=== PATIENT | female | born 1960 | race Caucasian/White ===

== ENCOUNTER 2016-05-13 14:36 | Inpatient (IN) | payer MEDICAID ==
[~2016-05-13] VITALS: Ht 160 cm; Wt 41.3 kg
[~2016-05-13 14:36] MED LIST: AMBI10TA PO; DEXA4TAB PO; FENT25DI T-DERMAL; LEVE500 PO; LOMO PO; LOPE2 PO; OXYC1SOL5 PO; PROM25TA5 PO; VENTAER INH; XANA0.5T PO
[2016-05-13] MEDS ORDERED: fentaNYL 25 MCG/HR PATCH TD SCH (22:00)
[2016-05-13] MEDS ORDERED: ONDANSETRON HCL 4 MG/2 ML VIAL IV PUSH PRN (22:15)
[2016-05-13] MEDS: SODIUM CHLOR 0.9% 1000 ML INJ 1,000 ML IV SCH (22:15)
[2016-05-13 22:26] VITALS: BP 112/71; PULSE 74; RESP 16; TEMP 97.3; O2SAT 100
[2016-05-13] MEDS ORDERED: DIATRIZOATE MEGLUM/DIATRIZOATE SOD 9 ML CUP PO ONE (22:53)
[2016-05-13 23:59] LABS: ALKALINE PHOSPHATASE 115 U/L (45-117); ALT (GPT) 20 U/L (10-53); ANION GAP 7 MEQ/L (5-15); AST (GOT) 21 U/L (15-37); BICARBONATE 30.5 MEQ/L (21.0-32.0); BLOOD UREA NITROGEN 11 MG/DL (7-18); CHLORIDE 99 MEQ/L (98-107); GLOMERULAR FILTRATION RATE 65 ML/MIN (>89); MAGNESIUM 1.7 MG/DL (1.5-2.5); POTASSIUM 3.6 MEQ/L (3.5-5.1); SODIUM (NA) 136 MEQ/L (136-145); TOTAL BILIRUBIN ADULT 0.4 MG/DL (0.2-1.0)
[2016-05-14 00:03] VITALS: BP 124/62; PULSE 60; RESP 16; TEMP 98.7; O2SAT 99
[2016-05-14] MEDS ORDERED: IOHEXOL 350 MG/ML 10 ML VIAL (for RAD DIAG) IV ONE (02:22)
--- NOTE | 2016-05-14 02:58 | RADRPT ---
EXAM DATE/TIME: 05/14/2016 01:59 [facility] COMPARISON: CT ABDOMEN & PELVIS W CONTRAST, November 14, 2014, 16:30. CT ABDOMEN & PELVIS W CONTRAST, May 14 17, 1:59. CT PULMONARY ANGIOGRAM, April 25, 2015, 15:36. CT THORAX W CONTRAST, November 14, 2014, 16 :30. INDICATIONS : Weight loss and failure to thrive. IV CONTRAST: 70 cc Omnipaque 350 (iohexol) IV ; Cumulative dose for multiple exams. RADIATION DOSE: 5.2 CTDIvol (mGy) ; Combined studies - Thorax/Abdomen/Pelvis MEDICAL HISTORY : Carcinoma, lung. Gastroesophageal reflux disease. SURGICAL HISTORY : Hysterectomy. Appendectomy. ENCOUNTER: Initial ACUITY: 1 day PAIN SCALE: Non-responsive LOCATION: Bilateral chest TECHNIQUE: Volumetric scanning of the chest was performed. Using automated exposure control and adjustment of t he mA and/or kV according to patient size, radiation dose was kept as low as reasonably achievable to obtain optimal diagnostic quality images. FINDINGS: LUNGS: Right apical lung mass is grossly unchanged. There are multiple left lung nodules, some of which are smaller than previous, however a posterior left infrahilar mass has increased in size, previously les s than 2 cm and now about 3 cm in diameter.. PLEURA: There is no pleural thickening or pleural effusion. MEDIASTINUM: The heart and great vessels demonstrate no acute abnormality. There is no mediastinal or hilar lymph adenopathy. AXILLAE: Within normal limits. No lymphadenopathy. SKELETAL: Within normal limits for patient age. CONCLUSION: Increased size of largest of multiple left lung nodules.. Stable large right apical lung mass. Alexis Noel MD on May 14, 2016 at 2:48 Board Certified Radiologist. This report was verified electronically.
--- NOTE | 2016-05-14 03:02 | RADRPT ---
EXAM DATE/TIME: 05/14/2016 01:59 [facility] COMPARISON: CT ABDOMEN & PELVIS W CONTRAST, November 14, 2014, 16:30. INDICATIONS : Weight loss and failure to thrive. IV CONTRAST: 70 cc Omnipaque 350 (iohexol) IV ; Cumulative dose for multiple exams. ORAL CONTRAST: Partial prescribed oral contrast ingested. RADIATION DOSE: 5.2 CTDIvol (mGy) ; Combined studies - Thorax/Abdomen/Pelvis MEDICAL HISTORY : Carcinoma, lung. Gastroesophageal reflux disease. SURGICAL HISTORY : Hysterectomy. Appendectomy. ENCOUNTER: Initial ACUITY: 1 day PAIN SCALE: Non-responsive LOCATION: Bilateral abdomen TECHNIQUE: Volumetric scanning of the abdomen and pelvis was performed. Using automated exposure control and ad justment of the mA and/or kV according to patient size, radiation dose was kept as low as reasonably achievable to obtain optimal diagnostic quality images. FINDINGS: LIVER: Homogeneous density without lesion. There is no dilation of the biliary tree. No calcified gallston es. SPLEEN: Normal size without lesion. PANCREAS: Within normal limits. KIDNEYS: Normal in size and shape. There is no mass, stone or hydronephrosis. ADRENAL GLANDS: Within normal limits. VASCULAR: There is no aortic aneurysm. BOWEL/MESENTERY: D. duodenum and proximal jejunal bowel loops are notable for dilatation and moderate concentric wall thickening. The remainder of the bowel is notable for mild fluid and gaseous distention throughout. ABDOMINAL WALL: Within normal limits. RETROPERITONEUM: There is no lymphadenopathy. BLADDER: No wall thickening or mass. REPRODUCTIVE: Uterus surgically absent. INGUINAL: There is no lymphadenopathy or hernia. MUSCULOSKELETAL: Within normal limits for patient age. CONCLUSION: Dilatation or wall thickening involving the duodenum and proximal small bowel. Mild fluid and gaseous distention of the remaining bowel. Alexis Noel MD on May 14, 2016 at 2:57 Board Certified Radiologist. This report was verified electronically.
[2016-05-14 04:04] VITALS: BP 125/75; PULSE 61; RESP 16; TEMP 96.8; O2SAT 99
[2016-05-14 05:54] LABS: AUTOMATED NEUTROPHIL # 4.2 TH/MM3 (1.8-7.7); BASOPHIL # 0.1 TH/MM3 (0-0.2); BASOPHIL % 1.6 % (0.0-2.0); EOSINOPHIL # 0.1 TH/MM3 (0-0.4); EOSINOPHIL % 1.2 % (0.0-4.0); HEMO FLAGS DIFF FINAL; LYMPH % 14.7 % (9.0-44.0); LYMPHOCYTE # 0.8 TH/MM3 (1.0-4.8); MEAN CELL VOLUME 80.7 FL (80.0-100.0); MEAN CORPUSCULAR HEMOGLOBIN 26.6 PG (27.0-34.0); MEAN CORPUSCULAR HGB CONC 32.9 % (32.0-36.0); MONO % 8.7 % (0.0-8.0); NEUT % 73.8 % (16.0-70.0); PLATELET COUNT 277 TH/MM3 (150-450); RED BLOOD COUNT 3.97 MIL/MM3 (4.00-5.30); RED CELL DISTRIBUTION WIDTH 16.6 % (11.6-17.2); WHITE BLOOD COUNT 5.7 TH/MM3 (4.0-11.0)
[2016-05-14 06:22] LABS: MAGNESIUM 1.8 MG/DL (1.5-2.5)
[2016-05-14 08:00] VITALS: BP 112/71; PULSE 55; RESP 20; TEMP 97.9; O2SAT 100
[2016-05-14] MEDS ORDERED: ENOXAPARIN SODIUM 40 MG/0.4 ML SYRINGE SQ SCH (09:00)
[2016-05-14] MEDS: PANTOPRAZOLE SOD 20 MG DELAYED RELEASE TAB PO SCH (09:00)
[2016-05-14] MEDS ORDERED: GADODIAMIDE PF 287 MG/ML 10 ML VIAL (for RAD MRI) IV ONE (10:24)
--- NOTE | 2016-05-14 11:05 | RADRPT ---
EXAM DATE/TIME: 05/14/2016 10:06 [facility] COMPARISON: MRI BRAIN W & W/O CONTRAST, November 24, 2014, 17:01. INDICATIONS : Brain and lung cancer. CONTRAST: 18 cc Omniscan (gadodiamide) IV MEDICAL HISTORY : Carcinoma, lung. Carcinoma, brain SURGICAL HISTORY : Hysterectomy. Bowel resection, brain mass resection ENCOUNTER: Subsequent ACUITY: > 1 year PAIN SCORE: 0/10 LOCATION: cranial TECHNIQUE: Multiplanar, multisequence MRI of the brain was performed both prior to and following the administration of paramagnetic contrast. FINDINGS: This is an abnormal exam. There is a peripheral enhancing heterogeneous mass centered within the left temporal lobe which appears to have increased in size now measuring 2.8 x 3.0 x 2.5 cm. There is significant adjacent per itumoral edema seen throughout the left temporal lobe and extending into the left parietal lobe and o ccipital lobe. There is now 1.2 cm of midline shift to the right with effacement of the left lateral ventricle, suprasellar cistern interpeduncular cistern. There is a new smaller area of enhancement wi th adjacent peritumoral edema measuring 8 mm seen within the right superior parietal lobe on series 1 3 image 150 and coronal series 15 image 128. The remainder of the pepe-white matter is preserved. The orbits and sinuses are unremarkable. CONCLUSION: Significantly abnormal exam with both enlargement of the mass seen within the left te mporal lobe with worsening peritumoral edema and new midline shift to the right measuring 1.2 cm with effacement of the adjacent lateral ventricles, suprasellar cistern and interpedicular cistern. New s mall area of abnormal enhancement and peritumoral edema identified within the superior right parietal lobe. Leesa Palma MD on May 14, 2016 at 10:42 Board Certified Radiologist. This report was verified electronically.
[2016-05-14 11:27] VITALS: BP 116/72; PULSE 54; RESP 20; TEMP 97.4; O2SAT 99
[2016-05-14] MEDS: SODIUM CHLOR 0.9% 1000 ML INJ 1,000 ML IV SCH (12:39)
[2016-05-14] MEDS: DEXAMETHASONE SOD PHOS 4 MG/ML VIAL IV SCH ×2 (12:39→21:52)
--- NOTE | 2016-05-14 13:37 | MH ---
cc: JERRI FULLER DATE OF ADMISSION: 05/13/2016 DATE OF : 1960 REASON FOR ADMISSION Patient with a history of stage IV lung cancer with metastasis to the brain, who presents with lethargy, confusion, overall declining performance status, and failure to thrive. CHIEF COMPLAINT Confusion. HISTORY OF PRESENT ILLNESS Ms. 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 The patient was previously seen by Dr. Lopez who recently retired and her care was transferred to [place]. She had presented to our clinic yesterday with complaints of confusion and lethargy. Her daughter was present during the clinic visit. She stated that the patient has been in overall decline over the last month. She does not verbalize much. She is sleeping a lot. The patient was diagnosed with lung cancer in 2013. She presented with brain lesions. She received stereotactic radiation to the brain. Subsequently she was treated with cisplatin chemotherapy. Then she had disease progression and has been treated with immunotherapy with IV nivolumab. During my conversation with the patient she was not able to answer questions. She was easily distractible and could not focus. When she was asked a question she would stare without giving an answer. The daughter states that she has not had any fevers or chills or nausea or vomiting. She does not have any pain. She appears comfortable. The patient is now being admitted for lethargy, confusion, failure to thrive, weight loss, and overall decline in her performance status. REVIEW OF SYSTEMS The review of systems was completed with the assistance of the daughter and are documented in the HPI. The patient was encephalopathic and confused. PAST MEDICAL HISTORY 1. Stage IV adenocarcinoma of the lung with brain mets. 2. Status post chemotherapy and radiation, and also currently getting treatment with immunotherapy. 3. History of anemia. 4. COPD. 5. Degenerative arthritis. PAST SURGICAL HISTORY 1. Appendectomy. 2. Hysterectomy. 3. Lung cancer biopsy. 4. Multiple bowel surgeries after a ruptured appendix with abscess. 5. Left occipital temporal craniotomy in 2014. 6. Colonoscopy in 1999. ALLERGIES No known drug allergies. MEDICATIONS 1. Ambien, one tablet p.o. daily p.r.n. 2. Duragesic 25 mcg patch transdermal q.3h. 3. Duricef 75 mcg p.o. 4. Folic acid 1 mg, one tablet p.o. daily. 5. Hydrocodone 10 mg, one tablet p.o. q.4h. 6. Ibuprofen as needed. 7. Imodium as needed. 8. Pantoprazole 40 mg, one tablet p.o. daily. 9. Phenergan 25 mg, one tablet p.o. q.6h. p.r.n. FAMILY HISTORY Family history was reviewed and it is noncontributory to this admission. SOCIAL HISTORY She lives with her family. She does not smoke cigarettes. She has a previous history of extensive tobacco abuse but quit 3-4 years ago. She does not drink alcohol. No illicit drug use. PHYSICAL EXAMINATION VITAL SIGNS: Blood pressure is 112/71, pulse is in the 70s, temperature is 97.3. Pulse ox shows O2 sats of 100%. GENERAL: An elderly female, chronically ill, appears confused, does not respond to questions completely. She is alert. The patient is cachectic on exam. HEENT: Pupils are equal, round and reactive to light. Extraocular movements intact. No oral thrush. No oral lesion. NECK: Supple. No JVD. No bruits. No lymphadenopathy. CHEST: Clear to auscultation bilaterally. CARDIAC: S1, S2, regular rate and rhythm. ABDOMEN: Soft, nontender, nondistended. EXTREMITIES: Without any edema, erythema or cyanosis. SKIN: Without any petechiae or lesions. NEUROLOGIC: Confused. Minimal verbal responses. Grossly cranial nerves are intact. PSYCHIATRIC: Flat affect. Does not answer questions. LABORATORY DATA WBC 6.5, hemoglobin 11.5, platelet count 312. Serum chemistries show sodium 136, potassium 3.8, CO2 27.5, creatinine 0.89, calcium 9.2, total bilirubin 0.4, AST 13, ALT 16, alk phos 121, total protein 7.5, albumin 3.7. ASSESSMENT AND PLAN This is a 55-year-old female with stage IV lung adenocarcinoma with mets to the brain, who is now being admitted with lethargy, confusion, failure to thrive, overall decline in performance status. 1. Lethargy and confusion. The differential here includes progressive disease versus metabolic or infectious etiology. She has been on during Duragesic and has been taking Lortab. There is a possibility of drug overdose. I am very concerned about the current disease. We will obtain an MRI of the brain to rule out any progression of her intracranial disease. I will also obtain CT of the chest, abdomen and pelvis to re-stage her disease. We will decrease the fentanyl patch to 25 mcg daily. Her lab work-up did not show any apparent metabolic encephalopathy. Will check ammonia level. Will check her electrolytes. Will obtain a UA and urine culture. 2. Pain control. Pain medications are adjusted as stated above. 3. Nausea prevention. I will start her on p.r.n. Zofran. 4. DVT prophylaxis. Will start her on enoxaparin 40 mg subcu daily. 5. Fluids, electrolytes and nutrition. She is quite cachectic and malnourished. Will obtain a nutrition consult. We will start her on Ensure Plus t.i.d. with meals. I will start her on IV fluids at 75 cc an hour. Further recommendations will be made based on the imaging results and the patient's clinical status. MD EDDIE De León/DUSTY /12:54 PM /1:09 PM
--- NOTE | 2016-05-14 14:30 | PD.ONC.PN ---
Subjective Subjective Remarks Afebrile overnight. Patient having trouble speaking, but per daughter understands everything said. Daughter at bedside states the patietn is significantly more alert and aware today, than she was yesterday. Still has pain in head and chest. d/w RN Objective Data Date Time Temp Pulse Resp B/P Pulse Ox O2 Delivery O2 Flow Rate FiO2 05/14/16 11:27 97.4 54 20 116/72 99 05/14/16 08:00 97.9 55 20 112/71 100 05/14/16 04:04 96.8 61 16 125/75 99 05/14/16 00:03 98.7 60 16 124/62 99 05/13/16 22:26 97.3 74 16 112/71 100 Result Diagram: 05/14/16 0440 05/13/16 2300 Laboratory Results Laboratory Tests Test 05/13/16 05/14/16 23:00 04:40 Sodium Level 136 MEQ/L Potassium Level 3.6 MEQ/L Chloride Level 99 MEQ/L Carbon Dioxide Level 30.5 MEQ/L Anion Gap 7 MEQ/L Blood Urea Nitrogen 11 MG/DL Creatinine 0.89 MG/DL Estimat Glomerular Filtration 65 ML/MIN Rate Random Glucose 92 MG/DL Calcium Level 8.8 MG/DL Phosphorus Level 2.8 MG/DL 3.0 MG/DL Magnesium Level 1.7 MG/DL 1.8 MG/DL Total Bilirubin 0.4 MG/DL Aspartate Amino Transf 21 U/L (AST/SGOT) Alanine Aminotransferase 20 U/L (ALT/SGPT) Alkaline Phosphatase 115 U/L Ammonia 15 MCMOL/L Total Protein 7.3 GM/DL Albumin 3.6 GM/DL Thyroid Stimulating Hormone 0.824 uIU/ML 3rd Gen Random Cortisol 18.9 MCG/DL White Blood Count 5.7 TH/MM3 Red Blood Count 3.97 MIL/MM3 Hemoglobin 10.5 GM/DL Hematocrit 32.0 % Mean Corpuscular Volume 80.7 FL Mean Corpuscular Hemoglobin 26.6 PG Mean Corpuscular Hemoglobin 32.9 % Concent Red Cell Distribution Width 16.6 % Platelet Count 277 TH/MM3 Mean Platelet Volume 7.2 FL Neutrophils (%) (Auto) 73.8 % Lymphocytes (%) (Auto) 14.7 % Monocytes (%) (Auto) 8.7 % Eosinophils (%) (Auto) 1.2 % Basophils (%) (Auto) 1.6 % Neutrophils # (Auto) 4.2 TH/MM3 Lymphocytes # (Auto) 0.8 TH/MM3 Monocytes # (Auto) 0.5 TH/MM3 Eosinophils # (Auto) 0.1 TH/MM3 Basophils # (Auto) 0.1 TH/MM3 CBC Comment DIFF FINAL Differential Comment Imaging Studies Last 24 hours Impressions Brain MRI 05/14/16 0000 Signed Impressions: Service Date/Time: Saturday, May 14, 2016 10:06 - CONCLUSION: Significantly abnormal exam with both enlargement of the mass seen within the left temporal lobe with worsening peritumoral edema and new midline shift to the right measuring 1.2 cm with effacement of the adjacent lateral ventricles, suprasellar cistern and interpedicular cistern. New small area of abnormal enhancement and peritumoral edema identified within the superior right parietal lobe. Leesa Palma MD Abdomen/Pelvis CT 05/13/162222 Signed Impressions: Service Date/Time: Saturday, May 14, 2016 01:59 - CONCLUSION: Dilatation or wall thickening involving the duodenum and proximal small bowel. Mild fluid and gaseous distention of the remaining bowel. Alexis Noel MD Chest CT 05/13/162221 Signed Impressions: Service Date/Time: Saturday, May 14, 2016 01:59 - CONCLUSION: Increased size of largest of multiple left lung nodules.. Stable large right apical lung mass. Alexis Noel MD Administered Medications Medications (Trade) Dose Ordered Sig/Quentin Route PRN Reason Start Time Stop Time Status Last Admin Dose Admin Sodium Chloride (NS 1000 ml Inj) 1,000 ml @ 75 mls/hr [id number] IV 05/13/16 22:15 05/14/16 12:39 Enoxaparin Sodium (Lovenox Inj) 40 mg DAILY SQ 05/14/16 09:00 05/14/16 09:00 Oxycodone HCl (Roxicodone) 5 mg Q6H PRN PO PAIN 05/13/16 22:15 05/14/16 09:00 Pantoprazole Sodium (Protonix) 20 mg DAILY PO 05/14/16 09:00 05/14/16 09:00 Dexamethasone Sodium Phosphate (Decadron Inj) 6 mg Q8H IV 05/14/16 12:00 05/14/16 12:39 Objective Remarks GENERAL: Middle aged female, sitting up in bed. She appears anxious, but otherwise comfortable. SKIN: Warm and dry. HEAD: Normocephalic. EYES: No scleral icterus. No injection or drainage. NECK: Supple, trachea midline. CARDIOVASCULAR: Regular rate and rhythm RESPIRATORY: Breath sounds equal bilaterally. No accessory muscle use. GASTROINTESTINAL: Abdomen soft, non-tender, nondistended. EXTREMITIES: No cyanosis NEUROLOGICAL: awake and alert. expressive aphasia. able to shrug shoulders. unable to lift eyebrows. unable to smile. when I ask her to stick out her tongue she says, "I don't remember how." Assessment/Plan Problem List: (1) Nausea & vomiting Status: Acute Plan: --on anti-emetics (2) Metastatic lung cancer (metastasis from lung to other site) Status: Acute Plan: --originally diagnosed in 2013 --received Cisplatin as well as Nivolumab after progression --has had stereotactic brain irradiation --s/p removal of brain mass in 2015. -- Lethargy and confusion for the past 2-3 weeks --MRI brain showed enlargement of the mass seen within the left temporal lobe with worsening peritumoral edema and new midline shift to the right measuring 1.2 cm --CT C/A/P showed Dilatation or wall thickening involving the duodenum and proximal small bowel. Mild fluid and gaseous distention of the remaining bowel. Increased size of largest of multiple left lung nodules (3) DVT prophylaxis Status: Acute Plan: --on Lovenox (4) Lethargy Status: Acute Assessment 55y/o female with history of stage IV lung cancer with metastasis to the brain admitted with lethargy, confusion, overall declining performance status, and failure to thrive. 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 status post chemotherapy and radiation, and also currently getting treatment with immunotherapy. History of anemia. COPD. Degenerative arthritis. Plan 1. continue IV Decadron 2. discussed MRI brain and CT C/A/P results with patient and daughters at bedside. Discussed plan to continue IV steroids. discussed consulting neurosurgery. opportunity to ask questions provided. multiple questions answered. MRI films reviewed with patient's daughters. emotional support provided. 3. consult neurosurgery Attending Statement The exam, history, and the medical decision-making described in the above note were completed with the assistance of the mid-level provider. I reviewed and agree with the findings presented. I attest that I had a [id number] encounter with the patient on the same day, and personally performed and documented my assessment and findings in the medical record. Patient has progressive disease with a large temporal mass and midline shift. IV Decadron started. Neurosurgery consulted. Not a good candidate for surgery . Options of further chemotherapy vs radiation treatments vs palliative care discussed. will continue supportive care for now. family to have further discussions. approximately 50 minutes spent in discussion with the patient and family and coordination of care. Bernadette Shine May 14, 2016 14:30 Marty Marie MD May 14, 2016 22:21
[2016-05-14 16:13] LABS: BLOOD, URINE NEG (NEG); COMMENT (UR) CULT NOT INDICATED; CULTURE IF INDICATED CULT NOT INDICATED; GLUCOSE,URINE NEG (NEG); KETONE, URINE NEG (NEG); NITRITE,URINE NEG (NEG); PH, URINE 6.5 (5.0-8.5); RENAL EPITHELIAL CELLS <1 /hpf; SQUAMOUS EPITHELIAL CELL URINE 1 /hpf (0-5); TRANSITIONAL EPI CELLS, URINE <1 /hpf; URINE COLOR YELLOW (YELLW/STRAW)
[2016-05-14 16:44] LABS: ANION GAP 9 MEQ/L (5-15); AST (GOT) 13 U/L (15-37); BICARBONATE 26.4 MEQ/L (21.0-32.0); BLOOD UREA NITROGEN 9 MG/DL (7-18); CHLORIDE 99 MEQ/L (98-107); GLOMERULAR FILTRATION RATE 60 ML/MIN (>89); MAGNESIUM 1.6 MG/DL (1.5-2.5); POTASSIUM 3.3 MEQ/L (3.5-5.1); SODIUM (NA) 134 MEQ/L (136-145)
[2016-05-14 16:47] LABS: ALKALINE PHOSPHATASE 106 U/L (45-117); ALT (GPT) 18 U/L (10-53); TOTAL BILIRUBIN ADULT 0.3 MG/DL (0.2-1.0)
--- NOTE | 2016-05-14 18:55 | MB ---
cc: JERRI FULLER MDKAMILA DATE OF CONSULTATION 05/14/2016 REASON FOR CONSULTATION Recurrent left temporoparietal lobe mass. HISTORY OF PRESENT ILLNESS A 55-year-old female who was underwent left craniotomy for resection of an isolated brain mass in October of 2014. She was found to have a metastatic lung adenocarcinoma with lung masses also. She subsequently also underwent stereotactic radiosurgery boost to the resection bed of the brain in November of 2014 and subsequently has undergone chemotherapy. She had speech deficits which did improve, although lately her symptoms have declined with progressive worsening of her speech and expression and weakness and headaches and pressure sensation and confusion. She is undergoing chemotherapy, but apparently despite this the lung masses are enlarging and she now is found to have a recurrent left posterior temporoparietal area mass measuring about 3 cm with surrounding vasogenic edema. The patient's daughters relate that after the last radiation therapy, she had significant headaches and does not want to undergo that again. PAST MEDICAL HISTORY 1. Lung adenocarcinoma with brain metastases stage IV, 2. Status post craniotomy and stereotactic radiosurgery and 2015, 3. COPD, 4. Bowel surgeries for ruptured appendix and abscess, 5. Hysterectomy, 6. Appendectomy. MEDICATIONS 1. Albuterol inhaler. 2. Alprazolam. 3. Decadron. 4. Lomotil, 5. Fentanyl patch 6. Keppra. 7. Imodium. 8. Percocet. 9. Phenergan. 10. Ambien. ALLERGIES NO KNOWN DRUG ALLERGIES. SOCIAL HISTORY She is and her children including several daughters are here at the bedside with her. She is a former smoker. Denies alcohol use. LABORATORY FINDINGS White blood cell count 5.7, hemoglobin 10.5, platelet count 277, Sodium 134, potassium 3.3, BUN nine, creatinine 0.96, glucose 179. REVIEW OF SYSTEMS Pertinent positives mentioned in history of present illness otherwise negative. Complains of severe headache, complained of nausea. Complains of confusion, complains of difficulty with expression of her speech more so than comprehension. Complains of generalized weakness. Complains of difficulty with her walking and unsteady gait. Denies any chest pain or shortness of breath. Denies any abdominal pain. No fevers or chills. She has a poor appetite and has been losing weight. PHYSICAL EXAMINATION VITAL SIGNS: Temperature 97.4, pulse is 54, respiratory rate 20, blood pressure 116/72, oxygen saturation 99% on room air. HEAD: Normocephalic, atraumatic. NECK: Supple. CHEST: Clear bilaterally HEART: Regular rate rhythm, normal S1, S2. ABDOMEN: Soft and nontender. EXTREMITIES: No cyanosis or edema. NEUROLOGIC: She is awake, alert. She has [id number] expressive and moderate receptive aphasia, has difficulty following simple commands. Pupils equal, reactive. Extraocular muscles are intact. She has a mild right facial droop. She has a right mild hemiparesis 4/5 and negative Babinski. Appreciates light touch sensation bilaterally. IMPRESSION Recurrent left posterior temporoparietal lobe mass with worsening headaches and aphasia and weakness. She had a previous history of craniotomy for resection of this mass along with radiosurgery with recurrent mass and also enlarging lung masses despite chemotherapy. PLAN The patient is not a good candidate for any further surgical intervention for her brain mass as this will definitely lead to significant morbidity including complete aphasia and likely right-sided weakness or paralysis. We did discuss the option of further radiation treatment to the brain as well as continued chemotherapy which the patient and her daughter are debating whether to undertake this and seemed to have elected, after a lengthy discussion, to proceed with comfort measures and hospice. They will also discuss this with her medical oncologist. MD NEELIMA Solomon/ /6:19 PM /6:37 PM
[2016-05-14 20:00] VITALS: BP 126/72; PULSE 76; RESP 16; TEMP 97.1; O2SAT 99
[2016-05-14] MEDS ORDERED: LORazepam 2 MG/ML VIAL IV STA (21:45)
[2016-05-14] MEDS: MORPHINE SULFATE 4 MG/ML INJ IV PRN (21:52)
[2016-05-14] MEDS ORDERED: REMOVE OLD DURAGESIC (FENTANYL) PATCH TD SCH (23:00)
[2016-05-14] MEDS ORDERED: fentaNYL 25 MCG/HR PATCH TD SCH ×2 (23:00→23:19)
[2016-05-14 23:59] VITALS: BP 125/58; PULSE 54; RESP 16; TEMP 97.6; O2SAT 96
[2016-05-15] MEDS: MORPHINE SULFATE 4 MG/ML INJ IV PRN ×7 (00:57→23:04)
[2016-05-15] MEDS: SODIUM CHLOR 0.9% 1000 ML INJ 1,000 ML IV SCH ×2 (00:59→14:25)
[2016-05-15 04:00] VITALS: BP 104/64; PULSE 53; RESP 16; TEMP 96.7; O2SAT 98
[2016-05-15] MEDS: DEXAMETHASONE SOD PHOS 4 MG/ML VIAL IV SCH ×3 (04:13→20:19)
[2016-05-15 06:04] LABS: AUTOMATED NEUTROPHIL # 5.8 TH/MM3 (1.8-7.7); BASOPHIL % 0.5 % (0.0-2.0); HEMATOCRIT 28.5 % (35.0-46.0); HEMO FLAGS DIFF FINAL; LYMPH % 7.1 % (9.0-44.0); LYMPHOCYTE # 0.5 TH/MM3 (1.0-4.8); MEAN CORPUSCULAR HEMOGLOBIN 26.9 PG (27.0-34.0); MEAN CORPUSCULAR HGB CONC 33.3 % (32.0-36.0); MONO % 2.7 % (0.0-8.0); NEUT % 89.7 % (16.0-70.0); PLATELET COUNT 243 TH/MM3 (150-450); RED BLOOD COUNT 3.52 MIL/MM3 (4.00-5.30); RED CELL DISTRIBUTION WIDTH 16.2 % (11.6-17.2); WHITE BLOOD COUNT 6.4 TH/MM3 (4.0-11.0)
[2016-05-15 06:21] LABS: ALKALINE PHOSPHATASE 97 U/L (45-117); ALT (GPT) 17 U/L (10-53); ANION GAP 11 MEQ/L (5-15); AST (GOT) 9 U/L (15-37); BICARBONATE 23.9 MEQ/L (21.0-32.0); BLOOD UREA NITROGEN 10 MG/DL (7-18); CHLORIDE 101 MEQ/L (98-107); GLOMERULAR FILTRATION RATE 67 ML/MIN (>89); MAGNESIUM 1.6 MG/DL (1.5-2.5); POTASSIUM 3.8 MEQ/L (3.5-5.1); SODIUM (NA) 136 MEQ/L (136-145); TOTAL BILIRUBIN ADULT 0.2 MG/DL (0.2-1.0)
[2016-05-15 08:00] VITALS: BP 117/65; PULSE 50; RESP 18; TEMP 96.9; O2SAT 100
[2016-05-15] MEDS: PANTOPRAZOLE SOD 20 MG DELAYED RELEASE TAB PO SCH (08:17)
[2016-05-15 12:00] VITALS: BP 110/70; PULSE 58; RESP 20; TEMP 98.1; O2SAT 98
--- NOTE | 2016-05-15 12:09 | PD.ONC.PN ---
Subjective Subjective Remarks Afebrile overnight. Patient resting comfortably. She still has headache. The morphine helps her headache but only for a small period of time, then the pain returns. Objective Data Date Time Temp Pulse Resp B/P Pulse Ox O2 Delivery O2 Flow Rate FiO2 05/15/16 08:00 96.9 50 18 117/65 100 05/15/16 04:00 96.7 53 16 104/64 98 05/14/16 23:59 97.6 54 16 125/58 96 05/14/16 20:00 97.1 76 16 126/72 99 05/15/16 05/15/16 05/15/16 07:00 15:00 23:00 Intake Total 2223 ml 360 ml Balance 2223 ml 360 ml Result Diagram: 05/15/16 0530 05/15/16 0530 Laboratory Results Laboratory Tests Test 05/14/16 05/15/16 14:35 05:30 Sodium Level 134 MEQ/L 136 MEQ/L Potassium Level 3.3 MEQ/L 3.8 MEQ/L Chloride Level 99 MEQ/L 101 MEQ/L Carbon Dioxide Level 26.4 MEQ/L 23.9 MEQ/L Anion Gap 9 MEQ/L 11 MEQ/L Blood Urea Nitrogen 9 MG/DL 10 MG/DL Creatinine 0.96 MG/DL 0.87 MG/DL Estimat Glomerular Filtration 60 ML/MIN 67 ML/MIN Rate Random Glucose 179 MG/DL 138 MG/DL Calcium Level 8.1 MG/DL 8.6 MG/DL Phosphorus Level 2.4 MG/DL 3.1 MG/DL Magnesium Level 1.6 MG/DL 1.6 MG/DL Total Bilirubin 0.3 MG/DL 0.2 MG/DL Aspartate Amino Transf 13 U/L 9 U/L (AST/SGOT) Alanine Aminotransferase 18 U/L 17 U/L (ALT/SGPT) Alkaline Phosphatase 106 U/L 97 U/L Total Protein 6.6 GM/DL 6.5 GM/DL Albumin 3.2 GM/DL 3.1 GM/DL White Blood Count 6.4 TH/MM3 Red Blood Count 3.52 MIL/MM3 Hemoglobin 9.5 GM/DL Hematocrit 28.5 % Mean Corpuscular Volume 81.0 FL Mean Corpuscular Hemoglobin 26.9 PG Mean Corpuscular Hemoglobin 33.3 % Concent Red Cell Distribution Width 16.2 % Platelet Count 243 TH/MM3 Mean Platelet Volume 7.3 FL Neutrophils (%) (Auto) 89.7 % Lymphocytes (%) (Auto) 7.1 % Monocytes (%) (Auto) 2.7 % Eosinophils (%) (Auto) 0.0 % Basophils (%) (Auto) 0.5 % Neutrophils # (Auto) 5.8 TH/MM3 Lymphocytes # (Auto) 0.5 TH/MM3 Monocytes # (Auto) 0.2 TH/MM3 Eosinophils # (Auto) 0.0 TH/MM3 Basophils # (Auto) 0.0 TH/MM3 CBC Comment DIFF FINAL Differential Comment Culture Results Microbiology Date/Time Procedure Status Source Growth 05/13/16 14:35 Urine Culture - Final Complete Urine Clean Catch 10-50,000 CFU/ML MIXED GRAM POSITIVE ... Administered Medications Medications (Trade) Dose Ordered Sig/Quentin Route PRN Reason Start Time Stop Time Status Last Admin Dose Admin Sodium Chloride (NS 1000 ml Inj) 1,000 ml @ 75 mls/hr [id number] IV 05/13/16 22:15 05/15/16 00:59 Enoxaparin Sodium (Lovenox Inj) 40 mg DAILY SQ 05/14/16 09:00 Hold 05/14/16 09:00 Oxycodone HCl (Roxicodone) 5 mg Q6H PRN PO PAIN 05/13/16 22:15 05/15/16 11:38 Pantoprazole Sodium (Protonix) 20 mg DAILY PO 05/14/16 09:00 05/15/16 08:17 Dexamethasone Sodium Phosphate (Decadron Inj) 6 mg Q8H IV 05/14/16 12:00 05/15/16 11:45 Morphine Sulfate (Morphine Inj) 2 mg Q3H PRN IV BREAKTHROUGH PAIN 05/14/16 21:15 05/15/16 08:17 Miscellaneous Information 1 Q3D TD 05/14/16 23:00 05/14/16 23:00 Fentanyl (Duragesic 25 Mcg Patch.72 Hr) 1 patch Q72H TD 05/14/16 23:19 05/14/16 23:24 Objective Remarks GENERAL: Middle aged female, sitting up in bed in nad. 2 Daughters at bedside. SKIN: Warm and dry. HEAD: Normocephalic. EYES: No injection or drainage. NECK: Supple, trachea midline. CARDIOVASCULAR: Regular rate and rhythm RESPIRATORY: Breath sounds equal bilaterally. No accessory muscle use. GASTROINTESTINAL: Abdomen soft, non-tender, nondistended. EXTREMITIES: No cyanosis NEUROLOGICAL: awake and alert. expressive aphasia improved. able to smile and shrug shoulders. unable to lift eyebrows. able to move all extremities. Assessment/Plan Problem List: (1) Nausea & vomiting Status: Acute Plan: --on anti-emetics (2) Metastatic lung cancer (metastasis from lung to other site) Status: Acute Plan: --originally diagnosed in 2013 --received Cisplatin as well as Nivolumab after progression --has had stereotactic brain irradiation --s/p removal of brain mass in 2016. -- Lethargy and confusion for the past 2-3 weeks --MRI brain showed enlargement of the mass seen within the left temporal lobe with worsening peritumoral edema and new midline shift to the right measuring 1.2 cm --CT C/A/P showed Dilatation or wall thickening involving the duodenum and proximal small bowel. Mild fluid and gaseous distention of the remaining bowel. Increased size of largest of multiple left lung nodules (3) DVT prophylaxis Status: Acute Plan: --on Lovenox (4) Lethargy Status: Acute Assessment 55y/o female with history of stage IV lung cancer with recurrent metastasis to the brain. 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 status post chemotherapy and radiation, and also currently getting treatment with immunotherapy. History of anemia. COPD. Degenerative arthritis. Plan 1. continue IV Decadron 2. increase morphine to 4mg IV q 3 hours. continue Oxycodone and fentanyl patch 3. family waiting to speak with Dr. Garcia, radiation oncology, but seem to be leaning toward hospice. patient wants me to speak with her daughter Neisha when she arrives, as she still has trouble expressing her thoughts, and believes Neisha will be able to explain the family conversation. Attending Statement The exam, history, and the medical decision-making described in the above note were completed with the assistance of the mid-level provider. I reviewed and agree with the findings presented. I attest that I had a [id number] encounter with the patient on the same day, and personally performed and documented my assessment and findings in the medical record. Clinically more alert and awake when I saw her and had more coherent conversation. I discussed the option of radiation therapy. The patient would like to consider XRT to the brain. I discussed the case with Dr. Garcia. Will adjust pain meds. Approximately 40 minutes spent with patient and family and coordination of care Bernadette Shine May 15, 2016 12:09 Marty Marie MD May 15, 2016 21:02
[2016-05-15 16:00] VITALS: BP 112/75; PULSE 58; RESP 20; TEMP 97.9; O2SAT 100
[2016-05-15 20:00] VITALS: BP 115/71; PULSE 60; RESP 16; TEMP 98.9; O2SAT 100
[2016-05-16] VITALS: BP 123/74; PULSE 70; RESP 16; TEMP 97.5; O2SAT 99
[2016-05-16] MEDS: MORPHINE SULFATE 4 MG/ML INJ IV PRN ×2 (02:10→07:17)
[2016-05-16 04:00] VITALS: BP 114/67; PULSE 59; RESP 16; TEMP 97.2; O2SAT 99
[2016-05-16] MEDS ORDERED: MORPHINE SULFATE 4 MG/ML INJ IV ONE (04:00)
[2016-05-16] MEDS: SODIUM CHLOR 0.9% 1000 ML INJ 1,000 ML IV SCH (04:06)
[2016-05-16] MEDS: DEXAMETHASONE SOD PHOS 4 MG/ML VIAL IV SCH (04:06)
[2016-05-16 05:50] LABS: AUTOMATED NEUTROPHIL # 9.3 TH/MM3 (1.8-7.7); BASOPHIL % 0.2 % (0.0-2.0); HEMATOCRIT 28.3 % (35.0-46.0); HEMO FLAGS DIFF FINAL; LYMPH % 5.6 % (9.0-44.0); LYMPHOCYTE # 0.6 TH/MM3 (1.0-4.8); MEAN CELL VOLUME 80.5 FL (80.0-100.0); MEAN CORPUSCULAR HEMOGLOBIN 26.5 PG (27.0-34.0); MONO % 5.5 % (0.0-8.0); NEUT % 88.7 % (16.0-70.0); PLATELET COUNT 237 TH/MM3 (150-450); RED BLOOD COUNT 3.52 MIL/MM3 (4.00-5.30); RED CELL DISTRIBUTION WIDTH 16.4 % (11.6-17.2); WHITE BLOOD COUNT 10.4 TH/MM3 (4.0-11.0)
[2016-05-16 06:01] LABS: ALKALINE PHOSPHATASE 90 U/L (45-117); ALT (GPT) 14 U/L (10-53); ANION GAP 9 MEQ/L (5-15); AST (GOT) 7 U/L (15-37); BICARBONATE 26.3 MEQ/L (21.0-32.0); BLOOD UREA NITROGEN 9 MG/DL (7-18); CHLORIDE 105 MEQ/L (98-107); GLOMERULAR FILTRATION RATE 65 ML/MIN (>89); MAGNESIUM 1.6 MG/DL (1.5-2.5); POTASSIUM 3.6 MEQ/L (3.5-5.1); SODIUM (NA) 140 MEQ/L (136-145); TOTAL BILIRUBIN ADULT 0.2 MG/DL (0.2-1.0)
[2016-05-16 08:00] VITALS: BP 122/66; PULSE 53; RESP 16; TEMP 96.8; O2SAT 99
[2016-05-16] MEDS: PANTOPRAZOLE SOD 20 MG DELAYED RELEASE TAB PO SCH (08:43)
[2016-05-16] MEDS ORDERED: PANT20 PO (11:45)
[2016-05-16] MEDS ORDERED: DEXA4TAB PO ×2 (11:47→11:53)
--- NOTE | 2016-05-16 11:47 | HHI.DCPOC ---
Discharge Care Plan Diagnosis: (1) Metastatic lung cancer (metastasis from lung to other site) (2) Brain mass Goals to Promote Your Health * To prevent worsening of your condition and complications * To maintain your health at the optimal level Directions to Meet Your Goals Take your medications as prescribed Follow your dietary instruction Follow activity as directed Keep your appointments as scheduled Take your immunizations and boosters as scheduled If your symptoms worsen call your PCP, if no PCP go to Urgent Care Center or Emergency Room Smoking is Dangerous to Your Health. Avoid second hand smoke Call the 24-hour hour crisis hotline for domestic abuse at Bernadette Shine May 16, 2016 11:47
--- NOTE | 2016-05-16 11:57 | HHI.DS ---
Discharge Summary Admission Date May 13, 2016 at 21:49 Discharge Date: May 16, 2016 Admitting Diagnosis Stage IV Lung Cancer with mets to the brain. Lethargy, confusion, declining performance status (1) Metastatic lung cancer (metastasis from lung to other site) Diagnosis: Principal (2) Brain mass Diagnosis: Principal Brief History Ms. Ricardo is a 55 y/o female admitted on 05/13/16 after declining in overall performance status and becoming increasing confused for about a month. 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 She has received stereotactic radiation to the brain, as well as cisplatin chemotherapy and Nivolumab immunotherapy in the past. CBC/BMP: 05/16/16 0400 05/16/16 0400 Significant Findings Laboratory Tests Test 05/13/16 05/13/16 05/14/16 05/14/16 14:35 23:00 04:40 14:35 Urine Specific [place] 1.050 (1.002-1.035) Urine Leukocyte Esterase SMALL (NEG) Estimat Glomerular Filtration 65 ML/MIN (>89) 60 ML/MIN (>89) Rate Red Blood Count 3.97 MIL/MM3 (4.00-5.30) Hemoglobin 10.5 GM/DL (11.6-15.3) Hematocrit 32.0 % (35.0-46.0) Mean Corpuscular Hemoglobin 26.6 PG (27.0-34.0) Neutrophils (%) (Auto) 73.8 % (16.0-70.0) Monocytes (%) (Auto) 8.7 % (0.0-8.0) Lymphocytes # (Auto) 0.8 TH/MM3 (1.0-4.8) Sodium Level 134 MEQ/L (136-145) Potassium Level 3.3 MEQ/L (3.5-5.1) Random Glucose 179 MG/DL (74-106) Calcium Level 8.1 MG/DL (8.5-10.1) Phosphorus Level 2.4 MG/DL (2.5-4.9) Aspartate Amino Transf 13 U/L (15-37) (AST/SGOT) Albumin 3.2 GM/DL (3.4-5.0) Test 05/15/16 05/16/16 05:30 04:00 Red Blood Count 3.52 MIL/MM3 3.52 MIL/MM3 (4.00-5.30) (4.00-5.30) Hemoglobin 9.5 GM/DL 9.3 GM/DL (11.6-15.3) (11.6-15.3) Hematocrit 28.5 % 28.3 % (35.0-46.0) (35.0-46.0) Mean Corpuscular Hemoglobin 26.9 PG 26.5 PG (27.0-34.0) (27.0-34.0) Neutrophils (%) (Auto) 89.7 % 88.7 % (16.0-70.0) (16.0-70.0) Lymphocytes (%) (Auto) 7.1 % 5.6 % (9.0-44.0) (9.0-44.0) Lymphocytes # (Auto) 0.5 TH/MM3 0.6 TH/MM3 (1.0-4.8) (1.0-4.8) Estimat Glomerular Filtration 67 ML/MIN (>89) 65 ML/MIN (>89) Rate Random Glucose 138 MG/DL 116 MG/DL (74-106) (74-106) Aspartate Amino Transf 9 U/L (15-37) 7 U/L (15-37) (AST/SGOT) Albumin 3.1 GM/DL 3.1 GM/DL (3.4-5.0) (3.4-5.0) Neutrophils # (Auto) 9.3 TH/MM3 (1.8-7.7) Calcium Level 8.2 MG/DL (8.5-10.1) Imaging Last Impressions Brain MRI 05/14/16 0000 Signed Impressions: Service Date/Time: Saturday, May 14, 2016 10:06 - CONCLUSION: Significantly abnormal exam with both enlargement of the mass seen within the left temporal lobe with worsening peritumoral edema and new midline shift to the right measuring 1.2 cm with effacement of the adjacent lateral ventricles, suprasellar cistern and interpedicular cistern. New small area of abnormal enhancement and peritumoral edema identified within the superior right parietal lobe. Leesa Palma MD Abdomen/Pelvis CT 05/13/16 2223 Signed Impressions: Service Date/Time: Saturday, May 14, 2016 01:59 - CONCLUSION: Dilatation or wall thickening involving the duodenum and proximal small bowel. Mild fluid and gaseous distention of the remaining bowel. Alexis Noel MD Chest CT 05/13/16 2222 Signed Impressions: Service Date/Time: Saturday, May 14, 2016 01:59 - CONCLUSION: Increased size of largest of multiple left lung nodules.. Stable large right apical lung mass. Alexis Noel MD PE at Discharge please see physical exam from progress note on date of discharge Hospital Course Ms. Ricardo was admitted on 05/13/16 for lethargy, confusion and declining performance status. An MRI of the brain revealed recurrent left posterior temporoparietal mass, CT chest revealed enlarging lung lesions. Neurosurgery was consulted, but did not feel patient was a good candidate for further surgical intervention. Radiation oncology was consulted and discussed with the patient brain radiation which the patient and her family discussed and have consented to. She underwent simulation on 05/16/16 and was discharged in stable condition on 05/16/16 with instructions for follow up next week. Pt Condition on Discharge: Good Discharge Disposition: Discharge Home Discharge Instructions DIET: Follow Instructions for: As Tolerated, No Restrictions Activities you can perform: Regular-No Restrictions Bernadette Shine May 16, 2016 11:57
--- NOTE | 2016-05-16 12:04 | PD.ONC.PN ---
Subjective Subjective Remarks Afebrile overnight. Patient resting comfortably. Daughters at bedside. She states headache is controlled. Objective Data Date Time Temp Pulse Resp B/P Pulse Ox O2 Delivery O2 Flow Rate FiO2 05/16/16 08:00 96.8 53 16 122/66 99 05/16/16 04:00 97.2 59 16 114/67 99 05/16/16 00:00 97.5 70 16 123/74 99 05/15/16 20:00 98.9 60 16 115/71 100 05/15/16 16:00 97.9 58 20 112/75 100 05/15/16 12:00 98.1 58 20 110/70 98 05/16/16 05/16/16 05/16/16 07:00 15:00 23:00 Intake Total 150 ml 996 ml Balance 150 ml 996 ml Result Diagram: 05/16/16 0400 05/16/16 0400 Laboratory Results Laboratory Tests Test 05/16/16 04:00 White Blood Count 10.4 TH/MM3 Red Blood Count 3.52 MIL/MM3 Hemoglobin 9.3 GM/DL Hematocrit 28.3 % Mean Corpuscular Volume 80.5 FL Mean Corpuscular Hemoglobin 26.5 PG Mean Corpuscular Hemoglobin 33.0 % Concent Red Cell Distribution Width 16.4 % Platelet Count 237 TH/MM3 Mean Platelet Volume 7.6 FL Neutrophils (%) (Auto) 88.7 % Lymphocytes (%) (Auto) 5.6 % Monocytes (%) (Auto) 5.5 % Eosinophils (%) (Auto) 0.0 % Basophils (%) (Auto) 0.2 % Neutrophils # (Auto) 9.3 TH/MM3 Lymphocytes # (Auto) 0.6 TH/MM3 Monocytes # (Auto) 0.6 TH/MM3 Eosinophils # (Auto) 0.0 TH/MM3 Basophils # (Auto) 0.0 TH/MM3 CBC Comment DIFF FINAL Differential Comment Sodium Level 140 MEQ/L Potassium Level 3.6 MEQ/L Chloride Level 105 MEQ/L Carbon Dioxide Level 26.3 MEQ/L Anion Gap 9 MEQ/L Blood Urea Nitrogen 9 MG/DL Creatinine 0.90 MG/DL Estimat Glomerular Filtration 65 ML/MIN Rate Random Glucose 116 MG/DL Calcium Level 8.2 MG/DL Phosphorus Level 2.9 MG/DL Magnesium Level 1.6 MG/DL Total Bilirubin 0.2 MG/DL Aspartate Amino Transf 7 U/L (AST/SGOT) Alanine Aminotransferase 14 U/L (ALT/SGPT) Alkaline Phosphatase 90 U/L Total Protein 6.4 GM/DL Albumin 3.1 GM/DL Culture Results Microbiology Date/Time Procedure Status Source Growth 05/13/16 14:35 Urine Culture - Final Complete Urine Clean Catch 10-50,000 CFU/ML MIXED GRAM POSITIVE ... Administered Medications Medications (Trade) Dose Ordered Sig/Quentin Route PRN Reason Start Time Stop Time Status Last Admin Dose Admin Sodium Chloride (NS 1000 ml Inj) 1,000 ml @ 75 mls/hr [id number] IV 05/13/16 22:15 05/16/16 04:06 Enoxaparin Sodium (Lovenox Inj) 40 mg DAILY SQ 05/14/16 09:00 Hold 05/14/16 09:00 Oxycodone HCl (Roxicodone) 5 mg Q6H PRN PO PAIN SCALE 1 TO 10 05/13/16 22:15 05/16/16 11:53 Pantoprazole Sodium (Protonix) 20 mg DAILY PO 05/14/16 09:00 05/16/16 08:43 Dexamethasone Sodium Phosphate (Decadron Inj) 6 mg Q8H IV 05/14/16 12:00 05/16/16 04:06 Miscellaneous Information 1 Q3D TD 05/14/16 23:00 05/14/16 23:00 Fentanyl (Duragesic 25 Mcg Patch.72 Hr) 1 patch Q72H TD 05/14/16 23:19 05/14/16 23:24 Morphine Sulfate (Morphine Inj) 4 mg Q3H PRN IV BREAKTHROUGH PAIN 05/15/16 12:15 05/16/16 07:17 Objective Remarks GENERAL: Middle aged female, sitting up in bed with daughters at bedside. She is bright and appears well. SKIN: Warm and dry. HEAD: Normocephalic. EYES: No injection or drainage. NECK: Supple, trachea midline. CARDIOVASCULAR: Regular rate and rhythm RESPIRATORY: Breath sounds equal bilaterally. No accessory muscle use. GASTROINTESTINAL: Abdomen soft, non-tender, nondistended. EXTREMITIES: No cyanosis NEUROLOGICAL: awake and alert. normal speech. moving all extremities. Assessment/Plan Problem List: (1) Metastatic lung cancer (metastasis from lung to other site) Status: Acute Plan: --originally diagnosed in 2013 --received Cisplatin as well as Nivolumab after progression --has had stereotactic brain irradiation --s/p removal of brain mass in 2016. -- Lethargy and confusion for the past 2-3 weeks --MRI brain showed enlargement of the mass seen within the left temporal lobe with worsening peritumoral edema and new midline shift to the right measuring 1.2 cm --CT C/A/P showed Dilatation or wall thickening involving the duodenum and proximal small bowel. Mild fluid and gaseous distention of the remaining bowel. Increased size of largest of multiple left lung nodules (2) DVT prophylaxis Status: Acute Plan: --on Lovenox (3) Lethargy Status: Acute (4) Nausea & vomiting Status: Resolved Plan: --on anti-emetics Assessment 55y/o female with history of stage IV lung cancer with recurrent metastasis to the brain. 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 status post chemotherapy and radiation, and also currently getting treatment with immunotherapy. History of anemia. COPD. Degenerative arthritis. Plan 1. will d/c after simulation today 2. plan for follow up next week. Bernadette Shine May 16, 2016 12:04
[2016-05-16] MEDS ORDERED: REMOVE OLD DURAGESIC (FENTANYL) PATCH TD SCH (22:00)
--- NOTE | 2016-05-21 07:07 | RC ---
cc: KAMILA SANCHEZ M.D., ALVARO MD LEMASTER,JERRI BORGES DATE OF SERVICE 05/15/2016 DATE OF [address] Jerri Marie. DIAGNOSIS Progressive left temporoparietal lobe mass after surgery with resection and radiation therapy in October of 2014. Stage IV CHIEF COMPLAINT Confusion. Failure to thrive. Worsening speech deficits. Headaches and confusion. REASON FOR VISIT The patient is being evaluated for salvage radiotherapy treatment options. HISTORY OF PRESENT ILLNESS This is a 55-year-old white female, a patient of Dr. Marie who was seen by him on 05/14/2016. He noted the patient to have the above mentioned complaints. As a result of this the patient was admitted into the hospital for further evaluation. CT scans and MRIs have been performed. It appears that the patient now has a recurrence for at the previous site of surgical resection on the left. Per my discussion with Dr. Marie today, she has been evaluated by Dr. Sanchez from Neurosurgery and due to the risk of surgery and possible deficits following surgery, this has not been recommended. The patient had immunotherapy about two weeks ago. The patient appears to have progressed on the immunotherapy. I have been requested to see the patient in consult for possible palliative salvage radiotherapy treatment options. The patient was seen with her daughter. PAST MEDICAL HISTORY 1. As above. 2. History of COPD. 3. Bowel surgery. 4. Hysterectomy. 5. Appendectomy. MEDICATIONS 1. Ambien. 2. Duragesic. 3. Duricef. 4. Hydrocodone. 5. Imodium. 6. Pantoprazole. 7. Phenergan. ALLERGIES No known drug allergies. FAMILY HISTORY No history of carcinoma in the family. SOCIAL HISTORY The patient used to smoke but quit about 3-4 years ago. Denies any EtOH intake. REVIEW OF SYSTEMS Upon review - CONSTITUTIONAL: The patient has fatigue, lethargy, though states that she feels much better and is much clearer. This is confirmed by the daughter. She says her headaches have gone away. ALLERGIC: Has not had allergic reaction recently. EYES: Unremarkable. ENT: Unremarkable. NECK: Unremarkable. INTEGUMENTARY: Unremarkable. CARDIOVASCULAR: Unremarkable. Denies any chest pain or clinical signs of [place]. RESPIRATORY: Unremarkable. Denies any hemoptysis or shortness of breath. GASTROINTESTINAL: Unremarkable. GENITOURINARY: Unremarkable. MUSCULOSKELETAL: The patient with muscle weakness. No major bony pain. NEUROLOGICAL: The patient says that she feels still a little bit confused and disoriented. As stated, the headaches have gone away. Denies any motor function deficits. No bowel or bladder incontinence. Denies any nausea. Still feels somewhat foggy but feels much better. PSYCHIATRIC: Unremarkable. ENDOCRINE: Unremarkable. HEMATOLOGICAL: Unremarkable. DERMATOLOGIC: Unremarkable. PHYSICAL EXAMINATION GENERAL: The patient is oriented x 3, in no acute distress at the time of evaluation. PAIN RATING SCALE: 0/10. BACK: To deep palpation and percussion of the posterior back no pain was elicited. LUNGS: Bilateral lungs were clear to auscultation with appropriate ventilatory respiratory effort. HEART: Regular in rate and rhythm. NECK: Palpation of the neck and bilateral supraclavicular areas are free. ABDOMEN: To palpation of the abdominal cavity, no hepatosplenomegaly is palpated. NEUROLOGICAL EXAMINATION: There is weakness of the upper and lower extremities that is equal and bilateral. No motor function deficit was detected. The patient does have some cognitive deficits when asked to perform mental tests, especially mathematical problems. The patient does have ataxia of the right and left hand, more so on the left. No other positive findings. SURGICAL PATHOLOGY As recorded. LABORATORY DATA WBC 6.4, hemoglobin 9.5, platelets of 243. This is dated 05/15/2016. RADIOLOGY MRI of the brain on 05/14/2016 - IMPRESSION: Significantly abnormal exam with both enlargement of the mass seen within the left temporal lobe with worsening, tumoral edema and new midline shift to the right measuring 1.2 cm with impingement of adjacent lateral ventricles, suprasellar cisterns and intraventricular cistern. New small area of abnormal enhancement and peritumoral edema within the superior right parietal lobe. CT of the abdomen and pelvis 05/14/[address] of the chest on 05/14/2016. IMPRESSION: Increased size of the largest multiple left lung nodules. Stable large right apical lung mass. ASSESSMENT As 55-year-old white female with diagnosis of progressive disease within the brain. The patient is being evaluated for possible radiotherapy treatment options for salvage. PLAN I had extensive discussion with the patient in regards to her present disease and condition. I have evaluated Dr. Marie's note from 05/13/2016. I have discussed this case with him today. I discussed with the patient the possible treatment modalities and purpose of further radiation therapy for salvage to the brain. There is a lesion that appears to be recurrent in the left temporal lobe and possibly also a new lesion on the right parietal lobe. I discussed the merits of the radiation therapy with the patient. I have recommend to her partial brain XRT after discussing her case with Dr. Marie. We discussed the merits of the radiation therapy as well as side effects and complications to include but limited to weakness and fatigue, decreased blood counts, loss of hair which could be permanent, brain damage, brain necrosis which may require extended use of steroids, loss of vision, decreased vision, decreased hearing, loss of hearing, difficulty and pain on swallowing, bone damage and fracture, decrease in cognitive functions. They understand that the purpose of the radiation therapy will be to keep neurological and cognitive functions stable as well as the quality of life. They understand that radiation therapy may not extend the life expectancy. Dr. Marie is determining whether the patient will be getting more chemotherapy. He is going to reassess the patient and determine if the patient is willing to do more. Last chemotherapy was 2 weeks ago so there should be no cross-reaction with the radiation therapy. At the end of the discussion, the patient wanted to move forward with treatments. She has an appointment time for tomorrow to get consent and do simulation and our plan is to start radiation therapy on Thursday. The patient and her daughter were advised that, if I could be of any further assistance to please let me know, otherwise we will proceed above. Dr. Marie, thank you very much for placing this consult and allowing me to participate in the care of your patient. Should you have any further questions or concerns, please do not hesitate to contact me. Butch Arellano MD Radiation Oncologist TITO CLARK/HAILEY /5:27 PM /6:27 AM [email or web address]
== END 2016-05-16 12:58 | disposition home or self-care (01) | DRG 54 ==
LOC: HOCA 21:49
PROVIDERS: ADMIT Internal Medicine; ATTEND Internal Medicine
DX: C79.31 Secondary malignant neoplasm of brain (principal); G93.49 Other encephalopathy; G93.6 Cerebral edema; R64 Cachexia; C78.00 Secondary malignant neoplasm of unspecified lung; E46 Unspecified protein-calorie malnutrition; G81.91 Hemiplegia, unspecified affecting right dominant side; C34.90 Malignant neoplasm of unspecified part of unspecified bronchus or lung; R47.01 Aphasia; R62.7 Adult failure to thrive; Z92.21 Personal history of antineoplastic chemotherapy; Z92.3 Personal history of irradiation; J44.9 Chronic obstructive pulmonary disease, unspecified; M19.90 Unspecified osteoarthritis, unspecified site; Z87.891 Personal history of nicotine dependence; R29.810 Facial weakness
CPT/HCPCS: 70553; 71260; 74177; 77290; 77334; 80053; 81001; 82140; 82533; 83735; 84100; 84443; 85025; 87086; 96523; 99232; A9579; G0463; J1100; J1642; J1650; J2060; J2270; J7030; Q9963; Q9967

== ENCOUNTER 2016-11-11 17:45 | Inpatient (IN) | payer MEDICAID ==
[~2016-11-11] VITALS: Ht 162.6 cm; Wt 49.8 kg
[~2016-11-11 17:45] MED LIST changes: -LOMO PO; -LOPE2 PO; +PANT20 PO
[2016-11-11 17:47] VITALS: BP 131/85; PULSE 117; RESP 16; TEMP 98.9; O2SAT 99
[2016-11-11] MEDS ORDERED: SODIUM CHLOR 0.9% 1000 ML INJ 1,000 ML IV SCH (18:22)
[2016-11-11] MEDS ORDERED: ONDANSETRON HCL 4 MG/2 ML VIAL IVP ONE (18:30)
[2016-11-11] MEDS ORDERED: MORPHINE SULFATE 4 MG/ML INJ IV PUSH ONE (18:30)
[2016-11-11 18:55] LABS: AUTOMATED NEUTROPHIL # 11.4 TH/MM3 (1.8-7.7); BASOPHIL # 0.1 TH/MM3 (0-0.2); BASOPHIL % 0.6 % (0.0-2.0); EOSINOPHIL % 0.2 % (0.0-4.0); HEMO FLAGS DIFF FINAL; LYMPH % 3.4 % (9.0-44.0); LYMPHOCYTE # 0.4 TH/MM3 (1.0-4.8); MEAN CELL VOLUME 95.9 FL (80.0-100.0); MEAN CORPUSCULAR HEMOGLOBIN 32.9 PG (27.0-34.0); MEAN CORPUSCULAR HGB CONC 34.3 % (32.0-36.0); MONO % 6.4 % (0.0-8.0); NEUT % 89.4 % (16.0-70.0); PLATELET COUNT 265 TH/MM3 (150-450); RED BLOOD COUNT 3.97 MIL/MM3 (4.00-5.30); RED CELL DISTRIBUTION WIDTH 18.7 % (11.6-17.2); WHITE BLOOD COUNT 12.8 TH/MM3 (4.0-11.0)
[2016-11-11 19:04] LABS: APTT (PATIENT) 27.6 SEC (24.3-30.1); INTERNATIONAL NORMALIZED RATIO 0.9 RATIO
--- NOTE | 2016-11-11 19:09 | RADRPT ---
EXAM DATE/TIME: 11/11/2016 18:49 [facility] COMPARISON: No previous studies available for comparison. MRI brain November 10, 2016 from tw in [facility]. INDICATIONS : Nausea and vomiting today after MRI Brain yesterday at [facility]. RADIATION DOSE: 50.30 CTDIvol (mGy) MEDICAL HISTORY : Metastatic, brain. Metastatic, lung. SURGICAL HISTORY : Appendectomy. Hysterectomy. ENCOUNTER: Initial ACUITY: 1 day PAIN SCALE: 0/10 LOCATION: cranial TECHNIQUE: Multiple contiguous axial images were obtained of the head. Using automated exposure control and adjustment of the mA and/or kV according to patient size, radiation dose was kept as low as reasonably achievable to obtain optimal diagnostic quality images. DICOM format image data is av ailable electronically for review and comparison. FINDINGS: There is hypoattenuation in the left temporal and occipital region with ex vacuo dilatation of the po sterior horn of left lateral ventricle identified. Previous left occipital craniotomy. No signs of ac cachil dehe infarct, hemorrhage. There is a small amount of vasogenic edema in the left parietal region at th e level of the patient's known subcentimeter mass. Left temporal mass with surrounding edema better v isualized on the MRI from yesterday. CONCLUSION: Chronic appearing changes on the left from previous surgery as well as a small amount of edema from t he patient's known metastatic deposits. No hemorrhage. Vignesh Ash MD on November 11, 2016 at 19:05 Board Certified Radiologist. This report was verified electronically.
[2016-11-11 19:12] LABS: ANION GAP 11 MEQ/L (5-15); AST (GOT) 26 U/L (15-37); BICARBONATE 25.9 MEQ/L (21.0-32.0); BLOOD UREA NITROGEN 9 MG/DL (7-18); CHLORIDE 97 MEQ/L (98-107); GLOMERULAR FILTRATION RATE 83 ML/MIN (>89); MAGNESIUM 1.6 MG/DL (1.5-2.5); POTASSIUM 3.2 MEQ/L (3.5-5.1); SODIUM (NA) 134 MEQ/L (136-145)
[2016-11-11 19:13] LABS: ALT (GPT) 41 U/L (10-53)
[2016-11-11] MEDS ORDERED: ALPR.5 PO (19:14)
[2016-11-11] MEDS ORDERED: PROM25TA10 PO (19:14)
[2016-11-11] MEDS ORDERED: FENT25DI T-DERMAL (19:14)
[2016-11-11] MEDS ORDERED: PANT20TA2 PO (19:14)
[2016-11-11] MEDS ORDERED: ZOLP10TA3 PO (19:14)
[2016-11-11 19:15] LABS: ALKALINE PHOSPHATASE 121 U/L (45-117); TOTAL BILIRUBIN ADULT 1.4 MG/DL (0.2-1.0)
[2016-11-11] MEDS ORDERED: HYDR-3534 PO (19:16)
[2016-11-11 19:19] VITALS: BP 132/75; PULSE 98; RESP 18; O2SAT 98
--- NOTE | 2016-11-11 19:19 | PD ---
HPI Chief Complaint: GI Complaint Time Seen by Provider: 19:14 Travel History International Travel<30 days: No Contact w/Intl Traveler<30days: No Traveled to known affect area: No History of Present Illness HPI 56-year-old female that presents to the ED for evaluation of nausea vomiting and diarrhea. Per patient she has a history of lung cancer with metastasis to the brain. She had an MRI done [address] Marroquin which show return no metastasis to the brain on the left side. Patient had an MRI done yesterday to have the radiologist oncologist evaluated for possible radiation therapy and apparently after the MRI she started developing this nausea vomiting and diarrhea. She has not had her chemotherapy this week in the last and she had chemotherapy was 2 weeks ago. No radiation recently. She states that she is unable to keep anything down. She's been taking her nausea medication at home with no relief. Patient states that Dr. Marroquin is aware that she is here today. She has an allergy to Benadryl. She denies any chest pain or shortness of breath more than her usual. She does state having some discomfort to her head and states that the headache is 7 out of 10. Per patient she believes is what causing her nausea. She takes no blood thinners. She states that she is also having diarrhea which is watery. No blood of any kind. Pain does not radiate. Patient does state having some left upper quadrant abdominal pain which attributes to throwing up. PFSH Past Medical History Asthma: No Autoimmune Disease: No Blood Disorders: No Anxiety: Yes Cancer: Yes (LUNG CANCER, brain ca) Cardiovascular Problems: No Chemotherapy: Yes (STAGE 4 LUNG/BRAIN CA) COPD: No Cerebrovascular Accident: No Diabetes: No Diminished Hearing: No Endocrine: No Gastrointestinal Disorders: Yes (HAS SHORT BOWEL) GERD: Yes Genitourinary: No Hepatitis: No Immune Disorder: No Implanted Vascular Access Dvce: Yes Musculoskeletal: No Neurologic: No Psychiatric: No Respiratory: Yes (LUNG CA) Immunizations Current: No Seizures: No Thyroid Disease: No ?: Not Menopausal: Yes Past Surgical History Abdominal Surgery: Yes (ADHESIONS) Appendectomy: Yes Body Medical Devices: has port Genitourinary Surgery: Yes Gynecologic Surgery: Yes (HYSTERECTOMY) Hysterectomy: Yes Neurologic Surgery: Yes (BRAIN MASS) Pacemaker: No Other Surgery: Yes (adhesion removal) Social History Alcohol Use: No Tobacco Use: No Substance Use: No Allergies-Medications (Allergen,Severity, Reaction): Coded Allergies: Benadryl (Verified Allergy, Severe, Anaphylaxis, 11/11/16) Reported Meds & Prescriptions Reported Meds & Active Scripts Active Protonix (Pantoprazole Sodium) 20 Mg Tab 20 Mg PO DAILY 30 Days Reported Dexamethasone 4 Mg Tab 4 Mg PO Q4HR Hydrocodone-Acetaminophen Liq 7.5-325 Mg/15 Ml Soln 5 Ml PO BID PRN Ondansetron Odt 4 Mg Tab 4 Mg SL Q4HR PRN Dilaudid (Hydromorphone HCl) 4 Mg Tab 4-8 Mg PO Q4-6H PRN Fentanyl Patch 72 HR (Fentanyl) 25 Mcg/Hr Patch 25 Mcg T-DERMAL Q72H Phenergan (Promethazine HCl) 25 Mg Tablet 25 Mg PO Q6H PRN Zolpidem (Zolpidem Tartrate) 10 Mg Tab 10 Mg PO HS PRN Xanax (Alprazolam) 0.5 Mg Tab 0.5 Mg PO Q6H PRN Review of Systems Except as stated in HPI: all other systems reviewed are Neg Physical Exam Narrative GENERAL: SKIN: Warm and dry. HEAD: Atraumatic. Normocephalic. EYES: Pupils equal and round. No scleral icterus. No injection or drainage. ENT: No nasal bleeding or discharge. Mucous membranes pink and moist. Tongue is midline. No uvula deviation. NECK: Trachea midline. No JVD. CARDIOVASCULAR: Regular rate and rhythm. No murmurs, S3, S4. RESPIRATORY: No accessory muscle use. Clear to auscultation. Breath sounds equal bilaterally. GASTROINTESTINAL: Abdomen soft, tender to palpation on the left upper quadrant, nondistended. Hepatic and splenic margins not palpable. MUSCULOSKELETAL: Extremities without clubbing, cyanosis, or edema. No obvious deformities. Full range of motion of the upper and lower extremities bilaterally. 2+ pulses bilaterally. NEUROLOGICAL: Awake and alert. No obvious cranial nerve deficits. Motor grossly within normal limits. Five out of 5 muscle strength in the arms and legs. Normal speech. PSYCHIATRIC: Appropriate mood and affect; insight and judgment normal. Data Data Last Documented VS Vital Signs Date Time Temp Pulse Resp B/P Pulse Ox O2 Delivery O2 Flow Rate FiO2 11/11/16 19:19 98 18 132/75 98 Room Air 11/11/16 17:47 98.9 Orders Complete Blood Count With Diff (11/11/16 18:22) Comprehensive Metabolic Panel (11/11/16 18:) Prothrombin Time / Inr (Pt) (11/11/16 18:) Act Partial Throm Time (Ptt) (11/11/16 18:22) Blood Culture (11/11/16 18:22) Lipase (11/11/16 18:) Urinalysis - C+S If Indicated (11/11/16 18:) Magnesium (Mg) (11/11/16 18:22) Iv Access Insert/Monitor (11/11/16 18:22) Ecg Monitoring (11/11/16 18:) Oximetry (11/11/16 18:) Lactic Acid (11/11/16 18:) Morphine Inj (Morphine Inj) (11/11/16 18:30) Ondansetron Inj (Zofran Inj) (11/11/16 18:30) Sodium Chlor 0.9% 1000 Ml Inj (Ns 1000 M (11/11/16 18:22) Ct Brain W/O Iv Contrast(Rout) (11/11/16 ) Ct Abd/Pel W Iv Contrast(Rout) (11/11/16 ) C Diff Toxin Pcr (11/11/16 19:42) Iohexol 350 Inj (Omnipaque 350 Inj) (11/11/16 20:19) Admit Order (Ed Use Only) (11/11/16 20:47) Labs Laboratory Tests Test 11/11/16 18:30 White Blood Count 12.8 TH/MM3 Red Blood Count 3.97 MIL/MM3 Hemoglobin 13.1 GM/DL Hematocrit 38.0 % Mean Corpuscular Volume 95.9 FL Mean Corpuscular Hemoglobin 32.9 PG Mean Corpuscular Hemoglobin 34.3 % Concent Red Cell Distribution Width 18.7 % Platelet Count 265 TH/MM3 Mean Platelet Volume 6.7 FL Neutrophils (%) (Auto) 89.4 % Lymphocytes (%) (Auto) 3.4 % Monocytes (%) (Auto) 6.4 % Eosinophils (%) (Auto) 0.2 % Basophils (%) (Auto) 0.6 % Neutrophils # (Auto) 11.4 TH/MM3 Lymphocytes # (Auto) 0.4 TH/MM3 Monocytes # (Auto) 0.8 TH/MM3 Eosinophils # (Auto) 0.0 TH/MM3 Basophils # (Auto) 0.1 TH/MM3 CBC Comment DIFF FINAL Differential Comment Prothrombin Time 10.0 SEC Prothromb Time International 0.9 RATIO Ratio Activated Partial 27.6 SEC Thromboplast Time Sodium Level 134 MEQ/L Potassium Level 3.2 MEQ/L Chloride Level 97 MEQ/L Carbon Dioxide Level 25.9 MEQ/L Anion Gap 11 MEQ/L Blood Urea Nitrogen 9 MG/DL Creatinine 0.72 MG/DL Estimat Glomerular Filtration 83 ML/MIN Rate Random Glucose 79 MG/DL Lactic Acid Level 1.2 mmol/L Calcium Level 9.2 MG/DL Magnesium Level 1.6 MG/DL Total Bilirubin 1.4 MG/DL Aspartate Amino Transf 26 U/L (AST/SGOT) Alanine Aminotransferase 41 U/L (ALT/SGPT) Alkaline Phosphatase 121 U/L Total Protein 7.0 GM/DL Albumin 3.3 GM/DL Lipase 175 U/L [facility] Medical Decision Making Medical Screen Exam Complete: Yes Emergency Medical Condition: Yes Medical Record Reviewed: Yes Interpretation(s) CBC & BMP Diagram 11/11/16 18:30 LFTS and lipase WNL Last Impressions Head CT 11/11/16 0000 Signed Impressions: Service Date/Time: Friday, November 11, 2016 18:49 - CONCLUSION: Chronic appearing changes on the left from previous surgery as well as a small amount of edema from the patient's known metastatic deposits. No hemorrhage. Vignesh Ash MD Abdomen/Pelvis CT 11/11/16 0000 Signed Impressions: Service Date/Time: Friday, November 11, 2016 20:11 - CONCLUSION: Left lung mass , atelectasis and consolidation noted. The mass is decreased in size today. No concerning intra-abdominal findings. Vignesh Ash MD Differential Diagnosis Nausea and vomiting versus headache versus metastatic brain cancer versus lung cancer versus obstruction versus gastritis versus gastroenteritis versus pancreatitis versus UTI versus gastroenteritis versus C. difficile versus reaction to contrast Narrative Course 56-year-old female that presents to the ED for evaluation of nausea vomiting and diarrhea. Patient was properly examined and was found to have signs and symptoms which appear to be unclear of etiology. Patient is to having a headache. Symptoms apparently started after having an MRI yesterday. Patient has had MRIs before contrast with no issues. Question whether this is related to more of an infectious etiology. I did review patient's MRI from yesterday and it showed no changes and no bleeding. Case was discussed in my attending who recommends CT scan of the head secondary to the new headache. CT of the head was negative for bleeding. Patient was reassured. Patient was given IV fluids and pain medication with some relief. Patient does have a leukocytosis and has abdominal discomfort. CT of the abdomen was done because of this reason. It is a patient's cancer and metastases I do recommend admission for further workup and treatment. She is in agreement with this plan. Case discussed with the residents who agreed to admission. Patient was admitted. Diagnosis Primary Impression: Nausea & vomiting Qualified Code: R11.2 - Intractable vomiting with nausea, unspecified vomiting type Additional Impressions: Brain mass Metastatic lung cancer (metastasis from lung to other site) Qualified Code: C34.90 - Metastatic lung cancer (metastasis from lung to other site), unspecified laterality Admitting Information Admitting Physician Requests: Roland Kong Nov 11, 2016 19:18
[2016-11-11] MEDS ORDERED: ONDA4TAB7 SL (19:26)
[2016-11-11] MEDS ORDERED: HYDR1SOL3 PO (19:26)
[2016-11-11] MEDS ORDERED: DILA4TAB2 PO (19:26)
[2016-11-11] MEDS ORDERED: DEXA4TAB PO (19:26)
[2016-11-11] MEDS ORDERED: IOHEXOL 350 MG/ML 10 ML VIAL (for RAD DIAG) IV ONE (20:19)
--- NOTE | 2016-11-11 20:43 | RADRPT ---
EXAM DATE/TIME: 11/11/2016 20:11 [place] COMPARISON: CT THORAX W CONTRAST, May 14, 2016, 1:59. CT ABDOMEN & PELVIS W CONTRAST, May 14, 2016, 1:59 . INDICATIONS : Nausea,vomiting and diarrhea starting yesterday. IV CONTRAST: 70 cc Omnipaque 350 (iohexol) IV ORAL CONTRAST: No oral contrast ingested. RADIATION DOSE: 6.70 CTDIvol (mGy) MEDICAL HISTORY : Carcinoma, lung. Brain mass SURGICAL HISTORY : Hysterectomy. ENCOUNTER: Initial ACUITY: 1 day PAIN SCALE: 7/10 LOCATION: abdomen TECHNIQUE: Volumetric scanning of the abdomen and pelvis was performed. Using automated exposure control and ad justment of the mA and/or kV according to patient size, radiation dose was kept as low as reasonably achievable to obtain optimal diagnostic quality images. DICOM format image data is available electro nically for review and comparison. FINDINGS: Bilateral breast implants are noted. Liver, gallbladder, spleen, adrenals, kidneys, pancreas unremark able. Surgical sutures along the anterior abdominal wall at the midline. Urinary bladder unremarkable . The patient is status post hysterectomy. Diverticulosis of the sigmoid colon without diverticulitis . Stomach, small bowel unremarkable. There is a fat containing right femoral hernia. Atherosclerotic calcifications of the aorta and iliac vessels. There is no evidence for fracture. Degenerative change s of the spine are seen. The patient's left lower lobe mass is decreased in size in April and 1.5 c m, previously 3 cm in AP dimension. There is postobstructive atelectasis and peripheral consolidation of the left lung base. CONCLUSION: Left lung mass, atelectasis and consolidation noted. The mass is decreased in size today. No concerni ng intra-abdominal findings. Vignesh Ash MD on November 11, 2016 at 20:39 Board Certified Radiologist. This report was verified electronically.
--- NOTE | 2016-11-11 21:10 | HHI.HP ---
[facility] Service Family Medicine Primary Care Physician Maurizio Cuevas MD Admission Diagnosis intractable nausea and vomiting, mets to brain, stage 4 lung cancer Diagnoses: International Travel<30 Days: No Contact w/Intl Traveler<30days: No Known Affected Area: No History of Present Illness Mrs. Ricardo is a 56 y/o F with PMHx of stage 4 lung cancer with metastasis to the brain presenting with nausea, vomiting, and diarrhea. 2 days ago the patient had a repeat brain MRI and preparation for possible radiation therapy. Approximately 1 hour after MRI was completed, patient began to have numerous episodes of vomiting and diarrhea. She reports 7 episodes of greenwhite vomiting without blood and greater than 12 episodes of liquid diarrhea that was very foul smelling in nature. Since that time she has not been able to tolerate anything by mouth. She attempted to take her nausea medicine at home, however was unable to keep the medication down. She also endorses a headache with her pain rated at 5/10, however she believes that this is causing her nausea and vomiting as when her symptoms began she was experiencing at 10/10 headache that did not resolve with her pain medication. She is currently going chemotherapy every 2 weeks who was most recently scheduled for treatment today, however due to her illness she was unable to attend the treatment. Her last radiation treatment was many months ago. Of note she has recently decreased her steroids dosage, however is unaware of the current dosage she is taking or the previous dosage she was on. She is only able to report that she went from 2 pills to one pill. She also recently completed a two-week course of ciprofloxacin prescribed for possible pneumonia, and she is unsure of the final day of the antibiotics but believes it was "about a week ago." Review of Systems Constitutional: COMPLAINS OF: Dizziness (Baseline), DENIES: Fever Eyes: COMPLAINS OF: Blurred vision (Baseline ) Ears, nose, mouth, throat: COMPLAINS OF: Running Nose, Epistaxis (2 weeks ago) , DENIES: Throat pain Respiratory: COMPLAINS OF: Cough (Baseline), Shortness of breath (Baseline) Cardiovascular: COMPLAINS OF: Chest pain Gastrointestinal: COMPLAINS OF: Abdominal pain, Diarrhea, Nausea, Vomiting, DENIES: Bloody stools Genitourinary: DENIES: Dysuria Musculoskeletal: DENIES: Joint pain, Back pain Integumentary: DENIES: Rash Hematologic/lymphatic: DENIES: Lymphadenopathy Neurologic: COMPLAINS OF: Headache Psychiatric: DENIES: Mood changes Past Family Social History Past Medical History Adenocarcinoma of the lung with brain metastases diagnosed on Anemia COPD - per chart Degenerative arthritis Migraines History of radiation therapy in 2014 Short-bowel syndrome - chronic diarrhea Past Surgical History Appendectomy Hysterectomy complete Multiple bowel surgeries after ruptured appendix with abscess Left occipital temporal craniotomy in 2014 Colonoscopy in 1999 Reported Medications Reported Meds & Active Scripts Active Protonix (Pantoprazole Sodium) 20 Mg Tab 20 Mg PO DAILY 30 Days Reported Dexamethasone 4 Mg Tab 4 Mg PO Q4HR Hydrocodone-Acetaminophen Liq 7.5-325 Mg/15 Ml Soln 5 Ml PO BID PRN Ondansetron Odt 4 Mg Tab 4 Mg SL Q4HR PRN Dilaudid (Hydromorphone HCl) 4 Mg Tab 4-8 Mg PO Q4-6H PRN Fentanyl Patch 72 HR (Fentanyl) 25 Mcg/Hr Patch 25 Mcg T-DERMAL Q72H Phenergan (Promethazine HCl) 25 Mg Tablet 25 Mg PO Q6H PRN Zolpidem (Zolpidem Tartrate) 10 Mg Tab 10 Mg PO HS PRN Xanax (Alprazolam) 0.5 Mg Tab 0.5 Mg PO Q6H PRN Allergies: Coded Allergies: Benadryl (Verified Allergy, Severe, Anaphylaxis, 11/11/16) Active Ordered Medications Inpatient Medications Morphine Sulfate (Morphine Inj) 4 mg ONCE ONCE IV PUSH Last administered on 18:59; Start 11/11/16 at 18:30; Stop 11/11/16 at 18:31; Status DC Ondansetron HCl 4 mg 4 mg ONCE ONCE IVP Last administered on 11/11/16 18:59; Start 11/11/16 at 18:30; Stop 11/11/16 at 18:31; Status DC Sodium Chloride (NS 1000 ml Inj) 1,000 ml @ 1,000 mls/hr Q1H IV Last administered on 11/11/16 19:00; Start 11/11/16 at 18:22; Stop 11/11/16 at 19:21 ; Status DC Family History Father - prostate cancer, COPD Mother - no significant history Social History Lives in [place] with care provided by 2 Daughters (Neisha Ricardo and Jelly Campos). Tobacco - 20 years 1 ppd, quit for 5-6 years Alcohol - Denies Illicit drugs - Denies Physical Exam Vital Signs Vital Signs Date Time Temp Pulse Resp B/P Pulse Ox O2 Delivery O2 Flow Rate FiO2 11/11/16 19:19 98 18 132/75 98 Room Air 11/11/16 17:47 98.9 117 16 131/85 99 Room Air Physical Exam GENERAL: Frail appearing 56-year-old elderly female lying in bed in mild distress. SKIN: Warm and dry. No rash. HEENT: Atraumatic, normocephalic with EOMI. PERRLA. Mucous membranes dry. Oropharynx clear with no erythema or exudate. Dentures intact. No rhinorrhea. No LAD, JVD, or thyromegaly appreciated. CARDIOVASCULAR: Tachycardic with regular rhythm. No MGR appreciated. RESPIRATORY: Clear to auscultation bilaterally with no CRW. No increased work of breathing. GASTROINTESTINAL: Abdomen soft, nondistended with hyperactive bowel sounds in all 4 quadrants. Patient tender to palpation in the right lower quadrant. Negative Butcher sign. Negative rebound tenderness. No fluid wave appreciated. MUSCULOSKELETAL: No cyanosis or edema. Strength grossly WNL. NEURO/PSYCH: Afocal. Awake, alert, and oriented x3. No focal abnormalities. Normal speech and interaction with the examiner. Laboratory Laboratory Tests Test 11/11/16 18:30 White Blood Count 12.8 Red Blood Count 3.97 Hemoglobin 13.1 Hematocrit 38.0 Mean Corpuscular Volume 95.9 Mean Corpuscular Hemoglobin 32.9 Mean Corpuscular Hemoglobin 34.3 Concent Red Cell Distribution Width 18.7 Platelet Count 265 Mean Platelet Volume 6.7 Neutrophils (%) (Auto) 89.4 Lymphocytes (%) (Auto) 3.4 Monocytes (%) (Auto) 6.4 Eosinophils (%) (Auto) 0.2 Basophils (%) (Auto) 0.6 Neutrophils # (Auto) 11.4 Lymphocytes # (Auto) 0.4 Monocytes # (Auto) 0.8 Eosinophils # (Auto) 0.0 Basophils # (Auto) 0.1 CBC Comment DIFF FINAL Differential Comment Prothrombin Time 10.0 Prothromb Time International 0.9 Ratio Activated Partial 27.6 Thromboplast Time Sodium Level 134 Potassium Level 3.2 Chloride Level 97 Carbon Dioxide Level 25.9 Anion Gap 11 Blood Urea Nitrogen 9 Creatinine 0.72 Estimat Glomerular Filtration 83 Rate Random Glucose 79 Lactic Acid Level 1.2 Calcium Level 9.2 Magnesium Level 1.6 Total Bilirubin 1.4 Aspartate Amino Transf 26 (AST/SGOT) Alanine Aminotransferase 41 (ALT/SGPT) Alkaline Phosphatase 121 Total Protein 7.0 Albumin 3.3 Lipase 175 Date/Time Procedure Status Source Growth 11/11/16 18:35 Aerobic Blood Culture Received Blood Peripheral Pending 11/11/16 18:35 Anaerobic Blood Culture Received Blood Peripheral Pending Result Diagram: 11/11/16 1830 11/11/16 1830 Imaging Last [address] 11/11/16 0000 Signed Impressions: Service Date/Time: Friday, November 11, 2016 18:49 - CONCLUSION: Chronic appearing changes on the left from previous surgery as well as a small amount of edema from the patient's known metastatic deposits. No hemorrhage. Vignesh Ash MD Abdomen/Pelvis CT 11/11/16 0000 Signed Impressions: Service Date/Time: Friday, November 11, 2016 20:11 - CONCLUSION: Left lung mass , atelectasis and consolidation noted. The mass is decreased in size today. No concerning intra-abdominal findings. Vignesh Ash MD Assessment and Plan Assessment and Plan Ms. Ricardo is a 56 y/o F with stage 4 metastatic lung cancer to the brain presenting with dehydration secondary to intractable nausea, vomiting, and diarrhea. Code Status Full Code Discussed Condition With MAN Avila Dr. Problem List: (1) Dehydration Status: Acute Plan: Patient presenting with 2 days of intractable nausea, vomiting, diarrhea leading to dehydration. Patient has been unable to tolerate any solid or liquid food for the past 48 hours. CMP: Sodium 134, potassium 3.2, chloride 97 1 L normal saline bolus given in ER D5 half-normal saline with 20 KCl at 100 mL per hour Potassium phosphate 30 mEq IV (2) Nausea & vomiting Status: Acute Plan: Patient presenting with intractable nausea, vomiting, and diarrhea for the past 48 hours. Patient endorsing right lower quadrant abdominal pain on exam. Patient denies any bloody vomiting or diarrhea episodes. Patient found to have leukocytosis likely secondary to at home steroid use. Patient also endorses right lower quadrant pain likely due to constant vomiting. Abdomen and pelvis CT: Left lung mass, atelectasis, and consolidation noted. Lung mass decreased in size. No concerning intra-abdominal findings. CBC: WBC 12.8, H/H 13/38, platelets 265 CMP: Sodium 134, potassium 3.2, chloride 97 Lactic acid 1.2 Lipase 175 C. difficile PCR: Pending Blood cultures: Pending Medications: Fluids as above Loperamide 2 mg every 6 hours when necessary for diarrhea Lactobacillus 1 tab by mouth 3 times a day Reglan 10 mg every 6 hours when necessary for nausea or vomiting Zofran 4 mg every 6 hours when necessary for nausea or vomiting Protonix 40 mg IV daily (3) Metastatic lung cancer (metastasis from lung to other site) Status: Acute Plan: Patient with previous diagnosis of metastatic lung cancer to the brain. Most recently evaluated with brain MRI 2 days ago for possible radiation therapy. Patient known to Dr. Gutiérrez. Oncology consulted, appreciate recommendations Radiation oncology consulted, appreciate recommendations Medical team and patient had thorough discussion on possible palliative or hospice consult at time of admission. Family stated they would like to discuss their options overnight and will inform day medical team other decision for possible consult. Medications: Patient on home dexamethasone, however is unsure of current dose. Defer to oncology for current dosing at this time. Patient currently prescribed fentanyl patch, hydrocodone, and Dilaudid for pain management at home. However patient states that currently she is only taking Dilaudid but is unsure of her current dose. Medical team will start patient with Dilaudid 2 mg for pain 1-5, 4 mg for pain 6-10 with 2 mg IV when necessary for breakthrough pain. Discussed with nursing staff to monitor for pain scale and respiratory symptoms as medical team is unsure of opiate tolerance. (4) Leukocytosis Status: Acute Plan: Patient found to have leukocytosis likely secondary to at-home steroid use. CBC: WBC 12.8 (5) Anxiety Status: Chronic Plan: Patient with reported chronic anxiety Continue Xanax 0.5 mg when necessary for anxiety every 6 hours; hold for decreased arousability/altered mental status (6) Nutrition, metabolism, and development symptoms Status: Acute Plan: Diet: Regular as tolerated Fluids: D5 half-normal saline with 20 mEq KCl at 100 mL per hour Electrolytes: As above, continue to monitor Prophylaxis: Tessalon when necessary for cough, DuoNeb when necessary for shortness of breath, Tylenol when necessary for fever, continue Protonix for GI prophylaxis, constipation medications per protocol (7) DVT prophylaxis Status: Acute Plan: Heparin 5000 units every 12 hours SCD/TEDs Physician Certification 2 Midnight Certification Type: Admission for Inpatient Services Order for Inpatient Services The services are ordered in accordance with Medicare regulations or non- Medicare payer requirements, as applicable. In the case of services not specified as inpatient-only, they are appropriately provided as inpatient services in accordance with the 2-midnight benchmark. Estimated LOS (days): 3 3 days is the estimated time the patient will need to remain in the hospital, assuming treatment plan goals are met and no additional complications. Post-Hospital Plan: Home Problem Qualifiers (1) Nausea & vomiting: Qualified Code: R11.2 - Intractable vomiting with nausea, unspecified vomiting type (2) Metastatic lung cancer (metastasis from lung to other site): Qualified Code: C34.90 - Metastatic lung cancer (metastasis from lung to other site), unspecified laterality Janusz Delatorre MD R1 Nov 11, 2016 21:10 3 days is the estimated time the patient will need to remain in the hospital, assuming treatment plan goals are met and no additional complications. Post-Hospital Plan: Home Problem Qualifiers (1) Nausea & vomiting: Qualified Code: R11.2 - Intractable vomiting with nausea, unspecified vomiting type (2) Metastatic lung cancer (metastasis from lung to other site): Qualified Code: C34.90 - Metastatic lung cancer (metastasis from lung to other site), unspecified laterality Janusz Delatorre MD R1 Nov 11, 2016 21:10
[2016-11-11] MEDS ORDERED: METOCLOPRAMIDE HCL 10 MG/2 ML VIAL IV PUSH ONE (21:15)
[2016-11-11] MEDS ORDERED: ZOLPIDEM TARTRATE 10 MG TAB PO PRN (21:30)
[2016-11-11] MEDS ORDERED: MAGNESIUM HYDROXIDE SUSP 30 ML CUP PO PRN (22:15)
[2016-11-11] MEDS ORDERED: SODIUM CHLORIDE 0.9% FLUSH 10 ML FLUSH IV FLUSH PRN (22:15)
[2016-11-11] MEDS ORDERED: DOCUSATE SODIUM 50 MG/SENNA 8.6 MG TAB PO PRN (22:15)
[2016-11-11] MEDS ORDERED: HYDROmorphone HCL 2 MG TAB PO PRN ×2 (22:15)
[2016-11-11] MEDS ORDERED: ACETAMINOPHEN 325 MG TAB PO PRN ×2 (22:15)
[2016-11-11] MEDS ORDERED: ONDANSETRON HCL 4 MG/2 ML VIAL IVP PRN (22:15)
[2016-11-11] MEDS ORDERED: LACTULOSE SYRUP 20 GM/30 ML CUP PO PRN (22:15)
[2016-11-11] MEDS ORDERED: SENNOSIDES 8.6 MG TAB PO PRN (22:15)
[2016-11-11] MEDS ORDERED: METOCLOPRAMIDE HCL 10 MG/2 ML VIAL IV PUSH PRN (22:15)
[2016-11-11] MEDS ORDERED: NALOXONE HCL 0.4 MG/ML AMP IV PRN (22:15)
[2016-11-11] MEDS ORDERED: BISACODYL 10 MG SUPP RECTAL PRN (22:15)
[2016-11-11 22:31] LABS: BLOOD, URINE NEG (NEG); COMMENT (UR) CULT NOT INDICATED; CULTURE IF INDICATED CULT NOT INDICATED; GLUCOSE,URINE NEG (NEG); KETONE, URINE 40 mg/dL (NEG); MUCUS URINE FEW /lpf (OCC); NITRITE,URINE NEG (NEG); PH, URINE 5.5 (5.0-8.5); SQUAMOUS EPITHELIAL CELL URINE <1 /hpf (0-5); URINE COLOR YELLOW (YELLW/STRAW)
[2016-11-11 22:32] VITALS: BP 132/75; PULSE 93; RESP 18; O2SAT 96
[2016-11-11] MEDS ORDERED: HYDROmorphone HCL PF 2 MG/ML VIAL IV PRN (22:45)
--- NOTE | 2016-11-11 22:45 | RADRPT ---
EXAM DATE/TIME: 11/11/2016 22:25 [place] COMPARISON: CT THORAX W CONTRAST, May 14, 2016, 1:59. CHEST SINGLE AP, April 25, 2015, 15:08. INDICATIONS : Vomiting. MEDICAL HISTORY : Carcinoma, lung. Brain mass SURGICAL HISTORY : Hysterectomy. Appendectomy. Infusaport. ENCOUNTER: Initial ACUITY: 1 day PAIN SCORE: 0/10 LOCATION: Bilateral chest FINDINGS: There is abnormal opacification of the right upper lobe. Right-sided portacatheter is noted. There is mild loss of the right hemithorax. Left lung is clear. Osseous structures are intact. CONCLUSION: 1. Stable right upper lobe mass and opacification. Vignesh Ash MD on November 11, 2016 at 22:43 Board Certified Radiologist. This report was verified electronically.
[2016-11-11] MEDS: HYDROmorphone HCL 4 MG TAB PO PRN (22:47)
[2016-11-11 22:57] VITALS: O2SAT 96
[2016-11-12] VITALS (7 sets, daily range): BP systolic 116–139; BP diastolic 67–82; PULSE 88–101; RESP 16–18; TEMP 96.6–98.4; O2SAT 95–98
[2016-11-12] MEDS ORDERED: POTASSIUM PHOSPHATE INJ 30 MMOL in SODIUM CHLOR 0.9% 250 ML INJ 250 ML IV ONE ×2
[2016-11-12] MEDS ORDERED: LOPERAMIDE HCL 2 MG CAP PO PRN
[2016-11-12] MEDS ORDERED: BENZONATATE 100 MG CAP PO PRN
[2016-11-12] MEDS ORDERED: RESP: ALBUTEROL 2.5 MG/IPRATROPIUM 0.5 MG NEB (PRN) NEB (00:30)
[2016-11-12] MEDS: D5-1/2 NS + KCL 20 MEQ INJ 1,000 ML IV SCH ×3 (00:57→18:06)
[2016-11-12] MEDS: SODIUM CHLORIDE 0.9% FLUSH 10 ML FLUSH IV FLUSH SCH ×3 (00:57→19:50)
[2016-11-12] MEDS: HEPARIN SODIUM - SQ 10,000 UNITS/ML VIAL SQ SCH ×2 (00:57→11:15)
[2016-11-12] MEDS: HYDROmorphone HCL 4 MG TAB PO PRN ×5 (01:00→19:46)
[2016-11-12] MEDS: PANTOPRAZOLE SODIUM 40 MG VIAL IV PUSH SCH (01:39)
[2016-11-12] MEDS: ALPRAZolam 0.5 MG TAB PO PRN ×2 (01:42→15:23)
[2016-11-12 07:40] LABS: AUTOMATED NEUTROPHIL # 6.4 TH/MM3 (1.8-7.7); BASOPHIL % 0.5 % (0.0-2.0); EOSINOPHIL % 0.6 % (0.0-4.0); HEMATOCRIT 28.3 % (35.0-46.0); HEMO FLAGS DIFF FINAL; LYMPH % 4.5 % (9.0-44.0); LYMPHOCYTE # 0.3 TH/MM3 (1.0-4.8); MEAN CELL VOLUME 96.1 FL (80.0-100.0); MEAN CORPUSCULAR HEMOGLOBIN 33.4 PG (27.0-34.0); MEAN CORPUSCULAR HGB CONC 34.7 % (32.0-36.0); MONO % 8.9 % (0.0-8.0); NEUT % 85.5 % (16.0-70.0); PLATELET COUNT 198 TH/MM3 (150-450); RED BLOOD COUNT 2.95 MIL/MM3 (4.00-5.30); RED CELL DISTRIBUTION WIDTH 18.6 % (11.6-17.2); WHITE BLOOD COUNT 7.5 TH/MM3 (4.0-11.0)
[2016-11-12 08:21] LABS: ALKALINE PHOSPHATASE 84 U/L (45-117); ALT (GPT) 31 U/L (10-53); ANION GAP 11 MEQ/L (5-15); AST (GOT) 16 U/L (15-37); BICARBONATE 22.5 MEQ/L (21.0-32.0); BLOOD UREA NITROGEN 7 MG/DL (7-18); CHLORIDE 105 MEQ/L (98-107); GLOMERULAR FILTRATION RATE 99 ML/MIN (>89); POTASSIUM 3.5 MEQ/L (3.5-5.1); SODIUM (NA) 138 MEQ/L (136-145); TOTAL BILIRUBIN ADULT 0.7 MG/DL (0.2-1.0)
--- NOTE | 2016-11-12 09:00 | MB ---
cc: JUMANA DE LA CRUZ M.D. DATE OF CONSULTATION 11/12/[address] Delatorre REASON FOR CONSULTATION Oncology consulted to render opinion regarding patient with metastatic lung cancer admitted with nausea, vomiting, diarrhea and dehydration. HISTORY OF PRESENT ILLNESS The patient very pleasant 56-year-old female with history of metastatic non-small cell cancer and brain metastasis presented to the hospital with a complaint of intractable nausea, vomiting and diarrhea. She is currently receiving palliative chemotherapy Taxotere. She was supposed to receive another cycle of chemotherapy this past Thursday, but she was too sick to come into clinic for the treatment. When I saw her last week, she was doing relatively well. She had a brain MRI which showed possible progression of disease with a new left occipital lobe lesion. She saw Dr. Garcia and sent for another MRI of the brain this two days ago. She stated an hour after the MRI she started throwing up. It was intractable and she could not keep anything down. She also developed diarrhea subsequently. She stated it was a foul-smelling diarrhea. She is not able to hold down her medication and take her antiemetic. She also developed a headache after the MRI. Recently decrease her dexamethasone from 2 mg twice a day to 2 mg once a day. She denies any visual changes. She has generalized weakness. She denies any focal weakness or numbness. Denies any chest pressure or palpitation. Denies any shortness of breath or cough. PAST MEDICAL HISTORY 1. Metastatic non-small cell lung cancer with brain metastasis. 2. Anemia 3. Chronic obstructive pulmonary disease 4. Degenerative arthritis 5. Migraine headache 6. Short gut syndrome PAST SURGICAL HISTORY 1. Appendectomy 2. Port placement 3. Complete hysterectomy 4. Multiple surgery after ruptured appendix with abscess. 5. Left occipital temporal craniotomy 6. Colonoscopy FAMILY HISTORY Noncontributory SOCIAL HISTORY Smoked a pack a day for 20 years, quit about five years ago. Denies any alcohol use. ALLERGIES BENADRYL CURRENT MEDICATIONS 1. Lactinex 2. Protonix 3. DuoNebs 4. Tessalon 5. Heparin REVIEW OF SYSTEMS CONSTITUTIONAL: Has generalized weakness and fatigue. EYES: Denies any blurry vision or double vision. ENT: No mouth sores or voice changes. CARDIOVASCULAR: No chest pressure or palpitation. RESPIRATORY: No shortness of breath or cough. GI: As above. : No dysuria or hematuria. MUSCULOSKELETAL: Denies significant pain. HEMATOLOGY: Negative. ENDOCRINE: Negative. DERMATOLOGY: Negative. PSYCHIATRIC: Negative. NEUROLOGIC: As above. PHYSICAL EXAMINATION VITAL SIGNS: Temperature 98.4, blood pressure 117/67, O2 saturation 95% on room air. GENERAL: She is alert and oriented x3. She looks a little tired. EYES: There is no sclerae icterus. Pupils equal, round and reactive to light. Oropharynx, dry mucosa, no lesion. NECK: No thyromegaly or palpable masses. LYMPHATICS: No palpable cervical, clavicular, axillary or inguinal lymph nodes. CARDIOVASCULAR: Regular S1 and S2. No murmur. LUNGS: Clear to auscultation anteriorly. ABDOMEN: Soft. She is a little sore diffusely. No focal tenderness. Positive bowel sounds. EXTREMITIES: No cyanosis or clubbing. Trace ankle edema. No calf tenderness. BACK: No paravertebral tenderness. SKIN: No rash or petechiae. NEUROLOGIC: Exam is nonfocal. LABORATORY DATA Reviewed ASSESSMENT 1. Non-small cell lung carcinoma with brain metastasis first diagnosed October 2014. She had a 9.3 cm right apical mass extending to the right hilum with at least five nodules in the left lung and mediastinal adenopathy. She received cisplatin and Alimta from February 2015 to July 2015. She developed regression of disease and treated with Opdivo from August 2015 to April 2016. She developed progression of disease in the brain again. She also developed progression of disease in the left lung nodule. She was then switched over to Docetaxel. She just completed seven cycles recently. A repeat CT scan showed a good response. The right hilar mass has decreased in size. There were no new masses or adenopathy noted. She was supposed to receive another cycle of Docetaxel two days ago, but was not able to come in due to her illness. We will continue to hold chemotherapy for now until she is stronger. 2. Brain metastasis. She had previous resection and radiation. Most recent MRI showed the left temporal lobe mass has decreased in size, however, there was a new 5 mm enhancing lesion in the left occipital lobe. She had a repeat MRI again two days ago which did not show any other acute changes. There was still some mild vasogenic edema. She developed a headache after the MRI. I am not sure if it is due to her brain metastasis or her migraine headache. Any way, her symptoms have improved. I am going to increase the dexamethasone back up to 4 mg twice a day. She can follow up with Dr. Garcia to see if she needs further radiation. 3. Intractable nausea, vomiting, diarrhea. This started after the MRI. It is unclear if this is because of her migraine headache or if she has viral illness. Her symptoms have subsided. C. Diff test is pending, but her diarrhea already improved. Continue antiemetics for now. 4. Dehydration improve with IV fluid. 5. Chronic obstructive pulmonary disease, stable. RECOMMENDATIONS 1. Discussed with the patient and her daughter. 2. Increased Dexamethasone 3. Continue IV fluid hydration and supportive care. 4. Hold chemotherapy for now. 5. She can follow up with Dr. Garcia once she is discharge from the hospital. Thank you Dr. Delatorre for asking us see this patient. MD MICHAELA Cortez/ORIN /8:02 AM /8:44 AM EDITA
[2016-11-12] MEDS: DEXAMETHASONE 4 MG TAB PO SCH ×2 (09:20→19:46)
[2016-11-12] MEDS: LACTOBACILLUS ACIDOPHILUS TAB PO SCH ×3 (09:20→18:04)
--- NOTE | 2016-11-12 10:16 | HHI.HP ---
[facility] Service Family Medicine Primary Care Physician Maurizio Cuevas MD Admission Diagnosis intractable nausea and vomiting, mets to brain, stage 4 lung cancer Diagnoses: (1) Dehydration Diagnosis: Principal (2) Nausea & vomiting Diagnosis: Principal (3) Metastatic lung cancer (metastasis from lung to other site) Diagnosis: Principal (4) Leukocytosis Diagnosis: Principal (5) Anxiety Diagnosis: Principal (6) Nutrition, metabolism, and development symptoms Diagnosis: Principal (7) DVT prophylaxis Diagnosis: Principal International Travel<30 Days: No Contact w/Intl Traveler<30days: No Known Affected Area: No History of Present Illness Mrs. Ricardo is a 56 y/o F with PMHx of stage 4 lung cancer with metastasis to the brain who presented with nausea, vomiting, and diarrhea. 2 days prior to admission, the patient had a repeat brain MRI and preparation for possible radiation therapy. Approximately 1 hour after MRI was completed, patient began to have numerous episodes of vomiting and diarrhea. She reports 7 episodes of greenwhite vomiting without blood and greater than 12 episodes of liquid diarrhea that was very foul smelling in nature. Since that time she had not been able to tolerate anything by mouth. She attempted to take her nausea medicine at home, however was unable to keep the medication down. She also endorses a headache with her pain rated at 5/10, however she believes that this is causing her nausea and vomiting as when her symptoms began she was experiencing at 10/10 headache that did not resolve with her pain medication. She is currently going chemotherapy every 3 weeks who was most recently scheduled for treatment, however due to her illness she was unable to attend the treatment. Her last radiation treatment was many months ago. Of note she has recently decreased her steroid dosage, from 4 mg dexamethasone BID to daily. She also recently completed a two-week course of ciprofloxacin prescribed for possible pneumonia, and she is unsure of the final day of the antibiotics but believes it was "about a week ago. She was given iv antiemetics and fluids and feels much better today. she was up walking twice today with PT and was able to eat and drink some today. She saw Dr Garcia and will be getting radiation to the one new area of met in her brain. She denied any sick contacts that had a gastroenteritis that she knows of. She also denied any suspicious intake of food like a "food poisoning" from bacteria. She reported getting sick quickly and then getting better quickly. She does get nausea and other problems after chemo but had no chemo for 3 weeks. Review of Systems Constitutional: COMPLAINS OF: Fatigue Gastrointestinal: COMPLAINS OF: Diarrhea, Nausea, Vomiting, Anorexia Neurologic: COMPLAINS OF: Paresthesias, Poor Balance Other Constitutional: COMPLAINS OF: Dizziness (Baseline), DENIES: Fever Eyes: COMPLAINS OF: Blurred vision (Baseline ) Ears, nose, mouth, throat: COMPLAINS OF: Running Nose, Epistaxis (2 weeks ago) , DENIES: Throat pain Respiratory: COMPLAINS OF: Cough (Baseline), Shortness of breath (Baseline) Cardiovascular: COMPLAINS OF: Chest pain Gastrointestinal: COMPLAINS OF: Abdominal pain, Diarrhea, Nausea, Vomiting, DENIES: Bloody stools Genitourinary: DENIES: Dysuria Musculoskeletal: DENIES: Joint pain, Back pain Integumentary: DENIES: Rash Hematologic/lymphatic: DENIES: Lymphadenopathy Neurologic: COMPLAINS OF: Headache Psychiatric: DENIES: Mood changes Past Family Social History Past Medical History Adenocarcinoma of the lung with brain metastases diagnosed on Anemia COPD - per chart Degenerative arthritis Migraines History of radiation therapy in 2014 Short-bowel syndrome - chronic diarrhea Past Surgical History Appendectomy Hysterectomy complete Multiple bowel surgeries after ruptured appendix with abscess Left occipital temporal craniotomy in 2014 Colonoscopy in 1999 Allergies: Coded Allergies: Benadryl (Verified Allergy, Severe, Anaphylaxis, 11/11/16) Family History Father - prostate cancer, COPD Mother - no significant history Social History Lives in [place] with care provided by 2 Daughters (Neisha Ricardo and Jelly Andres). her sister was in the room with her when seen later in the day Tobacco - 20 years 1 ppd, quit for 5-6 years Alcohol - Denies Illicit drugs - Denies Physical Exam Vital Signs Vital Signs Date Time Temp Pulse Resp B/P Pulse Ox O2 Delivery O2 Flow Rate FiO2 11/12/16 08:00 97.8 88 18 116/69 96 11/12/16 05:00 98.4 91 16 117/67 95 11/12/16 02:31 16 11/12/16 00:05 98.3 92 18 126/75 96 11/11/16 22:57 96 11/11/16 22:32 93 18 132/75 96 Room Air 11/11/16 19:19 98 18 132/75 98 Room Air 11/11/16 17:47 98.9 117 16 131/85 99 Room Air Physical Exam GENERAL: Frail appearing 56-year-old elderly female lying in bed in no current distress with a "rivera facies" from steroids wearing a cap SKIN: Warm and dry. No rash. HEENT: Atraumatic, normocephalic with EOMI. PERRLA. Mucous membranes dry initially, better now. Dentures intact. No rhinorrhea. No LAD, JVD, or thyromegaly appreciated. CARDIOVASCULAR: Tachycardic with regular rhythm. No MGR appreciated. RESPIRATORY: Clear to auscultation bilaterally with no CRW. No increased work of breathing. GASTROINTESTINAL: Abdomen soft, nondistended with hyperactive bowel sounds in all 4 quadrants. Patient tender to palpation in the right lower quadrant. Negative Butcher sign. Negative rebound tenderness. No fluid wave appreciated. MUSCULOSKELETAL: No cyanosis or edema. Strength grossly WNL. NEURO/PSYCH: Afocal. Awake, alert, and oriented x3. No focal abnormalities. Normal speech and interaction with the examiner. fatigued but able to walk with her walker Laboratory Laboratory Tests Test 11/11/16 11/11/16 11/12/16 18:30 22:18 07:05 White Blood Count 12.8 7.5 Red Blood Count 3.97 2.95 Hemoglobin 13.1 9.8 Hematocrit 38.0 28.3 Mean Corpuscular Volume 95.9 96.1 Mean Corpuscular Hemoglobin 32.9 33.4 Mean Corpuscular Hemoglobin 34.3 34.7 Concent Red Cell Distribution Width 18.7 18.6 Platelet Count 265 198 Mean Platelet Volume 6.7 6.6 Neutrophils (%) (Auto) 89.4 85.5 Lymphocytes (%) (Auto) 3.4 4.5 Monocytes (%) (Auto) 6.4 8.9 Eosinophils (%) (Auto) 0.2 0.6 Basophils (%) (Auto) 0.6 0.5 Neutrophils # (Auto) 11.4 6.4 Lymphocytes # (Auto) 0.4 0.3 Monocytes # (Auto) 0.8 0.7 Eosinophils # (Auto) 0.0 0.0 Basophils # (Auto) 0.1 0.0 CBC Comment DIFF FINAL DIFF FINAL Differential Comment Prothrombin Time 10.0 Prothromb Time International 0.9 Ratio Activated Partial 27.6 Thromboplast Time Sodium Level 134 138 Potassium Level 3.2 3.5 Chloride Level 97 105 Carbon Dioxide Level 25.9 22.5 Anion Gap 11 11 Blood Urea Nitrogen 9 7 Creatinine 0.72 0.62 Estimat Glomerular Filtration 83 99 Rate Random Glucose 79 116 Lactic Acid Level 1.2 Calcium Level 9.2 7.5 Magnesium Level 1.6 Total Bilirubin 1.4 0.7 Aspartate Amino Transf 26 16 (AST/SGOT) Alanine Aminotransferase 41 31 (ALT/SGPT) Alkaline Phosphatase 121 84 Total Protein 7.0 5.3 Albumin 3.3 2.3 Lipase 175 Urine Color YELLOW Urine Turbidity CLEAR Urine pH 5.5 Urine Specific [place] 1.040 Urine Protein NEG Urine Glucose (UA) NEG Urine Ketones 40 Urine Occult Blood NEG Urine Nitrite NEG Urine Bilirubin NEG Urine Urobilinogen LESS THAN 2.0 Urine Leukocyte Esterase NEG Urine RBC 1 Urine WBC 2 Urine Squamous Epithelial <1 Cells Urine Mucus FEW Microscopic Urinalysis Comment CULT NOT INDICATED Date/Time Procedure Status Source Growth 11/11/16 18:35 Aerobic Blood Culture Received Blood Peripheral Pending 11/11/16 18:35 Anaerobic Blood Culture Received Blood Peripheral Pending Result Diagram: 11/12/16 0705 11/12/16 0705 Imaging Last [address] 11/11/16 0000 Signed Impressions: Service Date/Time: Friday, November 11, 2016 18:49 - CONCLUSION: Chronic appearing changes on the left from previous surgery as well as a small amount of edema from the patient's known metastatic deposits. No hemorrhage. Vignesh Ash MD Abdomen/Pelvis CT 11/11/16 0000 Signed Impressions: Service Date/Time: Friday, November 11, 2016 20:11 - CONCLUSION: Left lung mass , atelectasis and consolidation noted. The mass is decreased in size today. No concerning intra-abdominal findings. Vignesh Ash MD Assessment and Plan Assessment and Plan Ms. Ricardo is a 56 y/o F with stage 4 metastatic lung cancer to the brain presenting with dehydration secondary to intractable nausea, vomiting, and diarrhea. improving today in strength and with her nausea and vomiting. If she continues to improve, she can hopefully go home tomorrow Problem List: (1) Dehydration Status: Acute Plan: Patient presenting with 2 days of intractable nausea, vomiting, diarrhea leading to dehydration. Patient had been unable to tolerate any solid or liquid food for the past 48 hours. CMP: Sodium 134, potassium 3.2, chloride 97 1 L normal saline bolus given in ER D5 half-normal saline with 20 KCl at 100 mL per hour Potassium phosphate 30 mEq IV able to take some po today (2) Nausea & vomiting Status: Acute Plan: Patient presenting with intractable nausea, vomiting, and diarrhea for the past 48 hours. Patient denies any bloody vomiting or diarrhea episodes. Patient found to have leukocytosis likely secondary to at home steroid use. Patient also endorsed right lower quadrant pain likely due to constant vomiting. better today Abdomen and pelvis CT: Left lung mass, atelectasis, and consolidation noted. Lung mass decreased in size. No concerning intra-abdominal findings. CBC: WBC 12.8, H/H 13/38, platelets 265 CMP: Sodium 134, potassium 3.2, chloride 97 Lactic acid 1.2 Lipase 175 C. difficile PCR: Pending Blood cultures: Pending Medications: Fluids as above Loperamide 2 mg every 6 hours when necessary for diarrhea Lactobacillus 1 tab by mouth 3 times a day Reglan 10 mg every 6 hours when necessary for nausea or vomiting Zofran 4 mg every 6 hours when necessary for nausea or vomiting Protonix 40 mg IV daily (3) Metastatic lung cancer (metastasis from lung to other site) Status: Acute Plan: Patient with previous diagnosis of metastatic lung cancer to the brain. Most recently evaluated with brain MRI 2 days ago for possible radiation therapy. Patient known to Dr. Gutiérrez. Oncology consulted, appreciate recommendations, she has had multiple different treatments and per notes wishes to continue with chemo Radiation oncology consulted, appreciate recommendations, will start radiation soon Medical team and patient had thorough discussion on possible palliative or hospice consult at time of admission. Medications: Patient on home dexamethasone,now back on 4 mg BID, it may be helping with nausea vs her headaches. Patient currently prescribed fentanyl patch, hydrocodone, and Dilaudid for pain management at home. However patient states that currently she is only taking Dilaudid but is unsure of her current dose. Medical team will start patient with Dilaudid 2 mg for pain 1-5, 4 mg for pain 6-10 with 2 mg IV when necessary for breakthrough pain. Discussed with nursing staff to monitor for pain scale and respiratory symptoms as medical team is unsure of opiate tolerance. she is tolerating her meds well (4) Leukocytosis Status: Acute Plan: Patient found to have leukocytosis likely secondary to at-home steroid use. she has not had Neulasta in probably 3 weeks CBC: WBC 12.8 (5) Anxiety Status: Chronic Plan: Patient with reported chronic anxiety Continue Xanax 0.5 mg when necessary for anxiety every 6 hours; hold for decreased arousability/altered mental status (6) Nutrition, metabolism, and development symptoms Status: Acute Plan: Diet: Regular as tolerated Fluids: D5 half-normal saline with 20 mEq KCl at 100 mL per hour Electrolytes: As above, continue to monitor Prophylaxis: Tessalon when necessary for cough, DuoNeb when necessary for shortness of breath, Tylenol when necessary for fever, continue Protonix for GI prophylaxis, constipation medications per protocol (7) DVT prophylaxis Status: Acute Plan: Heparin 5000 units every 12 hours SCD/TEDs Problem Qualifiers (1) Nausea & vomiting: Qualified Code: R11.2 - Intractable vomiting with nausea, unspecified vomiting type (2) Metastatic lung cancer (metastasis from lung to other site): Qualified Code: C34.90 - Metastatic lung cancer (metastasis from lung to other site), unspecified laterality (3) Leukocytosis: Qualified Code: D72.829 - Leukocytosis, unspecified type Charu Wen MD Nov 12, 2016 10:16
[2016-11-13] VITALS: BP 117/72; PULSE 85; RESP 16; TEMP 96.7; O2SAT 97
[2016-11-13] MEDS: HYDROmorphone HCL 4 MG TAB PO PRN ×3 (00:11→12:02)
[2016-11-13] MEDS: HEPARIN SODIUM - SQ 10,000 UNITS/ML VIAL SQ SCH (00:13)
[2016-11-13] MEDS: PANTOPRAZOLE SODIUM 40 MG VIAL IV PUSH SCH (01:13)
[2016-11-13 04:00] VITALS: BP 102/60; PULSE 86; RESP 16; TEMP 96.6; O2SAT 96
[2016-11-13] MEDS: D5-1/2 NS + KCL 20 MEQ INJ 1,000 ML IV SCH (04:06)
[2016-11-13 07:22] LABS: AUTOMATED NEUTROPHIL # 6.6 TH/MM3 (1.8-7.7); BASOPHIL # 0.1 TH/MM3 (0-0.2); HEMATOCRIT 26.3 % (35.0-46.0); HEMO FLAGS DIFF FINAL; LYMPH % 2.9 % (9.0-44.0); LYMPHOCYTE # 0.2 TH/MM3 (1.0-4.8); MEAN CELL VOLUME 97.1 FL (80.0-100.0); MEAN CORPUSCULAR HEMOGLOBIN 32.5 PG (27.0-34.0); MEAN CORPUSCULAR HGB CONC 33.5 % (32.0-36.0); MONO % 3.4 % (0.0-8.0); NEUT % 92.7 % (16.0-70.0); PLATELET COUNT 203 TH/MM3 (150-450); RED BLOOD COUNT 2.71 MIL/MM3 (4.00-5.30); RED CELL DISTRIBUTION WIDTH 18.4 % (11.6-17.2); WHITE BLOOD COUNT 7.1 TH/MM3 (4.0-11.0)
[2016-11-13 07:50] LABS: ALT (GPT) 37 U/L (10-53); ANION GAP 7 MEQ/L (5-15); AST (GOT) 18 U/L (15-37); BICARBONATE 26.9 MEQ/L (21.0-32.0); BLOOD UREA NITROGEN 5 MG/DL (7-18); CHLORIDE 107 MEQ/L (98-107); GLOMERULAR FILTRATION RATE 90 ML/MIN (>89); POTASSIUM 4.4 MEQ/L (3.5-5.1); SODIUM (NA) 141 MEQ/L (136-145)
--- NOTE | 2016-11-13 07:57 | PD.ONC.PN ---
Subjective Subjective Remarks Feeling better. No more N/V/D. No CP/SOB. Wanted to go home today. Objective Data Date Time Temp Pulse Resp B/P Pulse Ox O2 Delivery O2 Flow Rate FiO2 11/13/16 04:00 96.6 86 16 102/60 96 11/13/16 01:18 18 11/13/16 00:00 96.7 85 16 117/72 97 11/12/16 20:00 97.1 101 18 139/82 98 11/12/16 19:44 21 11/12/16 16:00 96.6 97 18 120/75 97 11/12/16 12:00 97.9 89 18 125/76 96 11/12/16 10:30 96 11/12/16 08:00 97.8 88 18 116/69 96 Result Diagram: 11/13/1661911/13/16 0620 Laboratory Results Laboratory Tests Test 11/13/16 06:20 White Blood Count 7.1 TH/MM3 Red Blood Count 2.71 MIL/MM3 Hemoglobin 8.8 GM/DL Hematocrit 26.3 % Mean Corpuscular Volume 97.1 FL Mean Corpuscular Hemoglobin 32.5 PG Mean Corpuscular Hemoglobin 33.5 % Concent Red Cell Distribution Width 18.4 % Platelet Count 203 TH/MM3 Mean Platelet Volume 6.7 FL Neutrophils (%) (Auto) 92.7 % Lymphocytes (%) (Auto) 2.9 % Monocytes (%) (Auto) 3.4 % Eosinophils (%) (Auto) 0.0 % Basophils (%) (Auto) 1.0 % Neutrophils # (Auto) 6.6 TH/MM3 Lymphocytes # (Auto) 0.2 TH/MM3 Monocytes # (Auto) 0.2 TH/MM3 Eosinophils # (Auto) 0.0 TH/MM3 Basophils # (Auto) 0.1 TH/MM3 CBC Comment DIFF FINAL Differential Comment Sodium Level 141 MEQ/L Potassium Level 4.4 MEQ/L Chloride Level 107 MEQ/L Carbon Dioxide Level 26.9 MEQ/L Anion Gap 7 MEQ/L Blood Urea Nitrogen 5 MG/DL Creatinine 0.67 MG/DL Estimat Glomerular Filtration 90 ML/MIN Rate Random Glucose 143 MG/DL Calcium Level 8.2 MG/DL Aspartate Amino Transf 18 U/L (AST/SGOT) Alanine Aminotransferase 37 U/L (ALT/SGPT) Albumin 2.5 GM/DL Culture Results Microbiology Date/Time Procedure Status Source Growth 11/11/16 18:30 Aerobic Blood Culture - Preliminary Resulted Blood Peripheral NO GROWTH IN 1 DAY 11/11/16 18:30 Anaerobic Blood Culture - Preliminary Resulted Blood Peripheral NO GROWTH IN 1 DAY 11/11/16 18:35 Aerobic Blood Culture - Preliminary Resulted Blood Peripheral NO GROWTH IN 1 DAY 11/11/16 18:35 Anaerobic Blood Culture - Preliminary Resulted Blood Peripheral NO GROWTH IN 1 DAY Administered Medications Medications (Trade) Dose Ordered Sig/Quentin Route PRN Reason Start Time Stop Time Status Last Admin Dose Admin Alprazolam (Xanax) 0.5 mg Q6H PRN PO ANXIETY 11/11/16 21:30 11/12/16 15:23 Zolpidem Tartrate 10 mg 10 mg HS PRN PO INSOMNIA 11/11/16 21:30 11/13/16 00:10 Potassium Chloride/Dextrose/ Sod Cl (D5-1/2 NS + KCl 20 Meq Inj) 1,000 ml @ 100 mls/hr Q10H IV 11/11/16 22:06 11/12/16 11:15 Sodium Chloride (NS Flush) 2 ml BID IV FLUSH 11/11/16 22:15 11/12/16 19:50 Hydromorphone HCl (Dilaudid) 4 mg Q4H PRN PO PAIN 6-10 11/11/16 22:42 11/13/16 06:26 Lactobacillus Acidophilus (Lactinex) 1 tab TID PO 11/12/16 09:00 11/12/16 18:04 Heparin Sodium (Porcine) (Heparin Inj) 5,000 units Q12H SQ 11/12/16 00:00 11/13/16 00:13 Pantoprazole Sodium (Protonix Inj) 40 mg Q24H IV PUSH 11/12/16 01:00 11/13/16 01:13 Dexamethasone (Decadron) 4 mg Q12HR PO 11/12/16 09:00 11/12/16 19:46 Objective Remarks GENERAL: Well-nourished, well-developed patient. Stronger. SKIN: Warm and dry. HEAD: Normocephalic. Alopecia. EYES: No scleral icterus. No injection or drainage. Facial puffiness. NECK: Supple, trachea midline. No JVD or lymphadenopathy. LYMPHATIC: No adenopathy. CARDIOVASCULAR: Regular rate and rhythm without murmurs. RESPIRATORY: Breath sounds decrease bases. GASTROINTESTINAL: Abdomen soft, non-tender, nondistended. EXTREMITIES: No cyanosis, or edema. MUSCULOSKELETAL: Adequate muscle tone. NEUROLOGICAL: No obvious focal deficit. Awake, alert, and oriented x3. PSYCHIATRIC: Appropriate mood and affect; insight and judgment normal. Assessment/Plan Assessment 1. Non-small cell lung carcinoma with brain metastasis first diagnosed October 2014. She had a 9.3 cm right apical mass extending to the right hilum with at least five nodules in the left lung and mediastinal adenopathy. She received cisplatin and Alimta from February 2015 to July 2015. She developed regression of disease and treated with Opdivo from August 2015 to April 2016. She developed progression of disease in the brain again. She also developed progression of disease in the left lung nodule. She was then switched over to Docetaxel. She just completed seven cycles recently. A repeat CT scan showed a good response. The right hilar mass has decreased in size. There were no new masses or adenopathy noted. She was supposed to receive another cycle of Docetaxel two days ago, but was not able to come in due to her illness. We will continue to hold chemotherapy for now until she is stronger. 11/13/16 Patient had another discussion with her family. She has now decided to stop further chemotherapy because she is getting weaker. I told her her prognosis is not good and her cancer is not curable although it is stable at this time. We discussed hospice support and she is now willing to talk to hospice. However, she is eager to go home and I will consult hospice to contact her at home. 2. Brain metastasis. She had previous resection and radiation. Most recent MRI showed the left temporal lobe mass has decreased in size, however, there was a new 5 mm enhancing lesion in the left occipital lobe. She had a repeat MRI again two days ago which did not show any other acute changes. There was still some mild vasogenic edema. She developed a headache after the MRI. I am not sure if it is due to her brain metastasis or her migraine headache. Any way, her symptoms have improved. I am going to increase the dexamethasone back up to 4 mg twice a day. She can follow up with Dr. Garcia to see if she needs further radiation. 3. Intractable nausea, vomiting, diarrhea. This started after the MRI. It is unclear if this is because of her migraine headache or if she has viral illness. Her symptoms have subsided. C. Diff test is pending, but her diarrhea already improved. 11/13 SYmptoms have resolved. 4. Dehydration improve with IV fluid. 5. Chronic obstructive pulmonary disease, stable. Plan RECOMMENDATIONS 1. Discussed with the patient and her daughter. 2. Continue Dexamethasone 4mg po BID 3. Can be d/c home. 4. Will consult hospice to see her at home. 5. She can follow up with Dr. Gacria once she is discharge from the hospital. Owen Gutiérrez MD Nov 13, 2016 07:56
[2016-11-13 07:59] LABS: ALKALINE PHOSPHATASE 80 U/L (45-117); TOTAL BILIRUBIN ADULT 0.3 MG/DL (0.2-1.0)
[2016-11-13 08:15] VITALS: BP 117/74; PULSE 91; RESP 16; TEMP 96.1; O2SAT 96
[2016-11-13] MEDS: LACTOBACILLUS ACIDOPHILUS TAB PO SCH (09:29)
[2016-11-13] MEDS: SODIUM CHLORIDE 0.9% FLUSH 10 ML FLUSH IV FLUSH SCH (09:29)
[2016-11-13] MEDS: DEXAMETHASONE 4 MG TAB PO SCH (09:29)
--- NOTE | 2016-11-13 10:49 | HHI.FPPN ---
Subjective Remarks The patient is 100% back to her baseline prior to admission. She has been seen by her oncologist and cleared for discharge. She is looking forward to going home. Denies fever, chills, nausea, vomiting, diarrhea. (Sonny Carmen MD R2) Objective Vitals Vital Signs Date Time Temp Pulse Resp B/P Pulse Ox O2 Delivery O2 Flow Rate FiO2 11/13/16 08:15 96.1 91 16 117/74 96 11/13/16 04:00 96.6 86 16 102/60 96 11/13/16 01:18 18 11/13/16 00:00 96.7 85 16 117/72 97 11/12/16 20:00 97.1 101 18 139/82 98 11/12/16 19:44 21 11/12/16 16:00 96.6 97 18 120/75 97 11/12/16 12:00 97.9 89 18 125/76 96 I/O 11/12/16 11/12/16 11/12/16 11/13/16 11/13/16 11/13/16 07:00 15:00 23:00 07:00 15:00 23:00 Intake Total 240 ml 1320 ml Output Total 3 ml Balance 240 ml 1317 ml Intake Oral 240 ml 1320 ml Output Urine Total 3 ml # Voids 1 2 (Sonny Carmen MD R2) Result Diagram: 11/13/16 0620 11/13/16 0620 Objective Remarks GENERAL: Frail appearing 56-year-old elderly female lying in bed in no current distress with a "rivera facies" from steroids wearing a cap SKIN: Warm and dry. No rash. HEENT: Atraumatic, normocephalic with EOMI. PERRLA. Mucous membranes dry initially, better now. Dentures intact. No rhinorrhea. No LAD, JVD, or thyromegaly appreciated. CARDIOVASCULAR: Tachycardic with regular rhythm. No MGR appreciated. RESPIRATORY: Clear to auscultation bilaterally with no CRW. No increased work of breathing. GASTROINTESTINAL: Abdomen soft, nondistended with hyperactive bowel sounds in all 4 quadrants. Patient tender to palpation in the right lower quadrant. Negative Butcher sign. Negative rebound tenderness. No fluid wave appreciated. MUSCULOSKELETAL: No cyanosis or edema. Strength grossly WNL. NEURO/PSYCH: Afocal. Awake, alert, and oriented x3. No focal abnormalities. Normal speech and interaction with the examiner. (Sonny Carmen MD R2) A/P Assessment and Plan Ms. Ricardo is a 56 y/o F with stage 4 metastatic lung cancer to the brain presenting with dehydration secondary to intractable nausea, vomiting, and diarrhea. Now back to baseline. We'll discharge home with oncology follow-up Discharge Planning Today (Sonny Carmen MD R2) Attending Attestation Patient seen and examined. Case reviewed and discussed with the resident team. Agree with plan of care as discussed with me and documented in the resident note. she feels well and wishes to go home today mainly to see her dogs (Charu Wen MD) Problem List: (1) Dehydration Status: Resolved Plan: Resolved (2) Nausea & vomiting Status: Resolved Plan: Now resolved (3) Metastatic lung cancer (metastasis from lung to other site) Status: Chronic Plan: Known to Dr. Gutiérrez Stable and cleared for discharge Follow-up as an outpatient with Dr. Garcia and Dr. Gutiérrez (4) Leukocytosis Status: Resolved Plan: Resolved (5) Anxiety Status: Chronic Plan: Patient with reported chronic anxiety Continue Xanax 0.5 mg when necessary for anxiety every 6 hours; hold for decreased arousability/altered mental status (6) Nutrition, metabolism, and development symptoms Status: Acute Plan: Diet: Regular as tolerated Fluids: Tolerating by mouth Electrolytes: As above, continue to monitor Prophylaxis: Tessalon when necessary for cough, DuoNeb when necessary for shortness of breath, Tylenol when necessary for fever, continue Protonix for GI prophylaxis, constipation medications per protocol (7) DVT prophylaxis Status: Acute Plan: Heparin 5000 units every 12 hours SCD/TEDs (Sonny Carmen MD R2) Problem Qualifiers (1) Nausea & vomiting: Qualified Code: R11.2 - Intractable vomiting with nausea, unspecified vomiting type (2) Metastatic lung cancer (metastasis from lung to other site): Qualified Code: C34.90 - Metastatic lung cancer (metastasis from lung to other site), unspecified laterality (3) Leukocytosis: Qualified Code: D72.829 - Leukocytosis, unspecified type Sonny Carmen MD R2 Nov 13, 2016 10:49 Charu Wen MD Nov 13, 2016 13:22
[2016-11-13] MEDS ORDERED: WALKER WHEELS/F1 MIS (10:52)
--- NOTE | 2016-11-13 10:52 | HHI.DCPOC ---
Discharge Care Plan Diagnosis: (1) Nausea & vomiting (2) Metastatic lung cancer (metastasis from lung to other site) (3) Dehydration Goals to Promote Your Health * To prevent worsening of your condition and complications * To maintain your health at the optimal level Directions to Meet Your Goals Take your medications as prescribed Follow your dietary instruction Follow activity as directed Keep your appointments as scheduled Take your immunizations and boosters as scheduled If your symptoms worsen call your PCP, if no PCP go to Urgent Care Center or Emergency Room Smoking is Dangerous to Your Health. Avoid second hand smoke Call the 24-hour hour crisis hotline for domestic abuse at Sonny Carmen MD R2 Nov 13, 2016 10:52
--- NOTE | 2016-11-13 10:53 | HHI.FF ---
Face to Face Verification Diagnosis: (1) Dehydration (2) Nausea & vomiting (3) Metastatic lung cancer (metastasis from lung to other site) Physical Therapy Order: Evaluate and Treat, Improve ambulation, Strength and gait training Home Health Nursing Order: Medical education Signs/symptoms of disease process Medication education-adverse effect I have seen patient Veronica Ricardo on 11/13/16. My clinical findings support the need for the requested home health care services because: Ltd mobility - disease progression Patient has SOB Deconditioned w/ increased weakness Limited ability to care for self I certify that my clinical findings support that this patient is homebound because: Unsteady gait/balance Unsafe to leave home unassisted Sonny Carmen MD R2 Nov 13, 2016 10:53
--- NOTE | 2016-11-14 09:28 | MB ---
cc: KEVEN PARKER M.D., ALVARO MD LEMASTER,KAMILA DUGGAN M.D., BOON Y. M.D. DATE OF CONSULTATION: 11/12/2016 DIAGNOSIS Progressive metastatic lung carcinoma; phe patient with new brain lesion. CHIEF COMPLAINT Nausea, vomiting, diarrhea. New brain lesion. REASON FOR CONSULTATION The patient is being evaluated for salvage radiotherapy treatment options to the brain. HISTORY OF PRESENT ILLNESS This is a 56-year-old white female diagnosed with metastatic lung carcinoma, known to me as I treated her for salvage to the brain. She has been treated to a total dose of 3000 cGy completed on 06/02/2016. The new lesion plus the recurrent lesion were treated at the same time. I last saw the patient in follow-up on 07/16/2016. The patient has been recently admitted for the above complaints of intractable nausea, vomiting and diarrhea. The patient had been discussed previously with Dr. Gutiérrez and I had an appointment with her in consultation as an outpatient to determine if further salvage radiotherapy could be delivered to the brain to a new lesion. Since the patient was admitted a consult has been placed for me to discuss salvage radiotherapy to the brain. PAST MEDICAL/SURGICAL HISTORY 1. As above. 2. COPD. 3. Bowel surgery. 4. Hysterectomy. 5. Appendectomy. Per the hospitalist chart. ALLERGIES No known allergies. FAMILY HISTORY As recorded. SOCIAL HISTORY As recorded. REVIEW OF SYSTEMS CONSTITUTIONAL: The patient says she feels much better, still has fatigue. Has not had any further nausea, vomiting or diarrhea since being in the hospital. ALLERGIC: Has not had an allergic reaction recently. EYES: Unremarkable. ENT: Unremarkable. NECK: Unremarkable. INTEGUMENTARY: Unremarkable. CARDIOVASCULAR: Unremarkable. Denies any chest pain or clinical signs of [place]. RESPIRATORY: Unremarkable. Denies any hemoptysis or major cough. Has some slight shortness of breath while walking. GASTROINTESTINAL: Unremarkable. GENITOURINARY: Unremarkable. MUSCULOSKELETAL: Unremarkable. NEUROLOGIC: The patient denies any issues or problems with motor functions. Cognitive function is preserved. PSYCHIATRIC: Unremarkable. ENDOCRINE: Unremarkable. DERMATOLOGIC: Unremarkable. PHYSICAL EXAMINATION GENERAL: The patient is oriented x3 in no major acute distress or discomfort at the time of the evaluation. VITAL SIGNS: Temperature 97.8, pulse 88, respiratory rate 18, blood pressure 116/69. Pulse ox 96% on room air. LUNGS: To auscultation there is decreased ventilatory respiratory effort which is equal and bilateral, perhaps slightly more so in the left lower lung. There is some rhonchi bilaterally towards the bases. HEART: Appeared to be regular rate and rhythm without murmurs. NECK: Palpation of the neck and bilateral supraclavicular areas are free. ABDOMEN: Palpation of the abdominal cavity reveals no hepatosplenomegaly or pain elicited. EXTREMITIES: No lower extremity edema is detected. NEUROLOGIC: No neurological deficit is detected. Cognitive function is preserved. Motor functions are preserved. No other positive findings. PATHOLOGY Surgical pathology as previously recorded. RADIOLOGY CT of the brain 11/11/2016, Impression: Chronic-appearing changes on the left arm from previous surgery as well as a small amount of edema from the patient's known metastatic deposits. No hemorrhage. CT of the abdomen and pelvis 11/11/2016, Impression: Left lung mass, atelectasis and consolation noted. The mass is decreased in size today. No concerning intra-abdominal findings. ASSESSMENT A 56-year white female with diagnosis of progressive metastatic disease to the brain with a new lesion. The patient is being evaluated for salvage radiosurgery treatment options. PLAN I had an extensive discussion with the patient and her family in regards to her presenting condition. I have discussed this case with Dr. Gutiérrez. I reviewed the MRI performed recently for the patient during the month of October. At this point the patient has a single solitary area that has developed and this area could be easily treated with radiosurgery. The previous areas that were treated, one has decreased in size and the other one has resolved. The patient was advised that this is the third time she will receive radiation therapy to the brain so the side effects and complications could be more increased. We discussed the side effects and complications of the treatment include but are not limited to weakness and fatigue, decreased blood counts, edema of the skin, necrosis of the skin, bone damage and fracture, brain damage, brain necrosis which may require the prolonged use of steroids or surgery, brain encephalopathy, short-term and long-term memory changes, brain damage, decreased vision, loss of vision, decreased hearing, loss of hearing. After thorough discussion the patient understood everything that was explained. She wanted to move forward with treatment. I will see her back and arrange for the patient to be simulated while in the hospital and then we will proceed accordingly. The patient was advised that if I could be of any further assistance to please let me know, otherwise will proceed as above. Dr. Gutiérrez, thank you very much for placing this consult and allowing me to participate in the care of your patient. Should you have any further questions or concerns, please do not hesitate to contact me. MD AMBER Lima/DUSTY /2:27 PM /8:40 AM
== END 2016-11-13 12:22 | disposition home health service (06) | DRG 392 ==
LOC: NEPC 17:45 → NEDA 20:48 → HOCB 23:58 → OBSVTOIN 11-12 15:06
PROVIDERS: ADMIT Family Medicine; ATTEND Family Medicine
DX: R11.2 Nausea with vomiting, unspecified (principal); C79.31 Secondary malignant neoplasm of brain; C34.92 Malignant neoplasm of unspecified part of left bronchus or lung; F41.9 Anxiety disorder, unspecified; E86.0 Dehydration; J44.9 Chronic obstructive pulmonary disease, unspecified; K21.9 Gastro-esophageal reflux disease without esophagitis; M19.90 Unspecified osteoarthritis, unspecified site; R19.7 Diarrhea, unspecified; Z92.3 Personal history of irradiation; Z80.42 Family history of malignant neoplasm of prostate; Z87.891 Personal history of nicotine dependence; G43.909 Migraine, unspecified, not intractable, without status migrainosus
CPT/HCPCS: 70450; 71010; 74177; 80053; 81001; 83605; 83690; 83735; 85025; 85610; 85730; 87040; 94150; 94667; 94668; C9113; G8987-GP; G8988-GP; J1644; J2270; J2405; J2765; J3480; J7030; J7050; J8540; Q9967